=== PATIENT | male | born 1980 | race American Indian/Alaskan Native ===

== ENCOUNTER 2016-06-22 12:46 | Outpatient (CLI) | payer BC ==
--- NOTE | 2016-06-22 15:20 | Ultrasound Report ---
ULTRASOUND RENAL INDICATION: Severe, stage IV chronic kidney disease. COMPARISON: None similar. FINDINGS: Renal sonography suggests moderately increased renal cortical echogenicity. Grossly preserved contours. No hydronephrosis. RIGHT KIDNEY measures 11.9 x 4.9 x 5.4 cm with cortical thickness of 1.2 cm. LEFT KIDNEY visualization difficult due to lack of good acoustic window, though estimated at 11.1 x 5.4 x 5 cm with cortical thickness of 1.4 cm. URINARY BLADDER suboptimally distended and assessed. CONCLUSION: Underlying medical renal disease without acute renal sonographic abnormality, as described. Thank you for the opportunity to participate in this patient's care.
== END 2016-06-22 12:47 | disposition home or self-care (01) ==
LOC: US 12:46
PROVIDERS: ATTEND Internal Medicine Nephrology
DX: N18.4 Chronic kidney disease, stage 4 (severe) (principal); N32.89 Other specified disorders of bladder
CPT/HCPCS: 76770

== ENCOUNTER 2019-01-21 18:14 | Inpatient (IN) | payer BC, OTHER ==
--- NOTE | 2019-01-21 18:27 | Event Note ---
ED Screening Note Date of service: 01/21/19 Time: 18:23 ED Screening Note: 38 y/o male comes in for SOB, N/V/ diarrhea times. 2 weeks. History of CHF, HTN, pre diabetes, kidney failure. Is on no meds. This initial assessment/diagnostic orders/clinical plan/treatment(s) is/are subject to change based on patients health status, clinical progression and re- assessment by fellow clinical providers in the ED. Further treatment and workup at subsequent clinical providers discretion. Patient/guardian urged not to elope from the ED as their condition may be serious if not clinically assessed and managed. Initial orders include:
--- NOTE | 2019-01-21 19:16 | Emergency Department Report ---
HPI - General Chief Complaint: Dyspnea/Respdistress Time Seen by Provider: 01/21/19 18:23 - HPI HPI: 38-year-old male presents to the emergency department with a 1.5 week history of some nausea, vomiting, abdominal pain and shortness of b reath. He has a past medical history of hypertension, CHF, chronic kidney disease and admits to medication noncompliance. He does not have a primary care physician or light rail train operator but says that his baby attendant is Dr. oMoney. 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 He has not taken anything for his symptoms prior to presentation. He is a tobacco smoker but denies any illicit drug use. No fever, chest pain, back pain. ED Past Medical Hx - Past Medical History Previous Medical History?: Yes Hx Hypertension: Yes Hx Congestive Heart Failure: Yes Hx Renal Disease: Yes Additional medical history: hernia - Surgical History Past Surgical History?: No - Social History Smoking Status: Current Every Day Smoker Substance Use Type: None - Medications Home Medications: Home Medications Medication Instructions Recorded Confirmed Last Taken Type Clotrimazole/Betamethasone 1 applicatio TP BID #30 gm 09/30/13 07/01/15 Unknown Rx [Lotrisone] amLODIPine [Norvasc] 5 mg PO DAILY #30 tab 06/30/15 Unknown Rx ED Review of Systems ROS: Stated complaint: KIDNEY PAIN/SOB/OFF MEDS Other details as noted in HPI Comment: All other systems reviewed and negative Constitutional: denies: chills, fever Eyes: denies: eye pain, vision change ENT: denies: ear pain, throat pain Respiratory: shortness of breath. denies: cough Cardiovascular: edema. denies: chest pain Gastrointestinal: abdominal pain, nausea, vomiting Genitourinary: denies: dysuria, discharge Musculoskeletal: denies: back pain, arthralgia Skin: denies: rash, lesions Neurological: denies: headache, weakness Physical Exam - Physical Exam Vital Signs: Vital Signs 01/21/19 18:20 Temperature 98.9 F Pulse Rate 97 H Respiratory 19 Rate Blood Pressure 189/123 O2 Sat by Pulse 97 Oximetry Physical Exam: GENERAL: The patient is well-developed well-nourished. HENT: Normocephalic. Atraumatic. Patient has moist mucous membranes. EYES: Extraocular motions are intact. Pupils equal reactive to light bilaterally. NECK: Supple. Trachea is midline. CHEST/LUNGS: Clear to auscultation. There is no respiratory distress noted. HEART/CARDIOVASCULAR: Regular. There is no tachycardia. There is no murmur. ABDOMEN: Abdomen is soft, nontender. Patient has normal bowel sounds. Obese habitus. There is a reducible umbilical hernia. SKIN: There is mild pitting edema to the bilateral lower extremity's. NEURO: The patient is awake, alert, and oriented. The patient is cooperative. The patient has no focal neurologic deficits. Normal speech. MUSCULOSKELETAL: There is no tenderness or deformity. There is no evidence of acute injury. ED Course Vital Signs 01/21/19 18:20 Temperature 98.9 F Pulse Rate 97 H Respiratory 19 Rate Blood Pressure 189/123 O2 Sat by Pulse 97 Oximetry - Consultations Consultation #1: 01/22/19 00:[address] Candelario, nephrology, who has agreed to see the patient has a consult. He has asked for a renal ultrasound and a urinalysis. ED Medical Decision Making - Lab Data Result diagrams: 01/21/19 19:14 01/21/19 19:14 - EKG Data -: EKG Interpreted by Me EKG shows normal: sinus rhythm, axis, intervals (prolonged QT and QTC intervals) , QRS complexes, ST-T waves (there is some T-wave flattening and T-wave inversions to the lateral leads) Rate: normal - EKG Data When compared to previous EKG there are: changes noted (new T-wave inversions to the lateral leads from previous EKG) Interpretation: other (sinus rhythm, prolonged QT and QTC intervals, some flattening of the T waves and T-wave inversions to the lateral leads) - Radiology Data Radiology results: report reviewed, image reviewed interpreted by me: Chest x-ray does not show any acute process. There are no pleural effusions, obvious pneumonia and there is no pneumothorax. Abdominal x-ray shows nonspecific nonobstructive bowel gas Bilateral renal ultrasound. 01/21/2019. HISTORY: Acute renal failure. FINDINGS: Right kidney measures 11.2 cm. Cortex measures 2.1 cm. Left kidney measures 11 cm. Cortex measures 1.8 cm. Cortical thickness and echogenicity is normal. Negative for mass or obstruction. The right kidney contains a 1.4 cm cyst. A left renal cyst measures 1.2 cm. The bladder contains moderate urine. IMPRESSION: IMPRESSION: 1. Negative for obstruction or localized inflammation. 2. Small bilateral renal cysts. NM lung scan perf/vent INDICATION / CLINICAL INFORMATION: SOb, elevated dimer. TRACER: Seen on 133 gas 19.9 mCi inhalation. Technetium 99m MAA 4.55 mCi IV injection. COMPARISON: No relevant prior imaging study available. FINDINGS: Nuclear medicine ventilation and perfusion lung imaging were performed. Both are relatively homogeneous. Negative for suspicious ventilation or perfusion defect. IMPRESSION: Low probability for pulmonary embolus. - Medical Decision Making This patient presents with some intermittent shortness of breath, nausea, vomiting, abdominal pain. He has a history of CHF and there is some history of chronic renal insufficiency but it is unknown what his normal creatinine and GFR levels are. Chest x-ray did not show any volume overload, pneumonia, pleural effusions or any other acute process. Abdominal x-ray shows nonspecific nonobstructive bowel gas. EKG does not show any signs of ST elevation NM. The patient's labs show acute renal failure with a GFR of 3. He appears to have signs of uremia with a BUN of 120, creatinine of 20. He has hypocalcemia. A VQ scan was done that was low probability for a pulmonary embolus and. Renal ultrasound shows bilateral renal cysts. Nephrology was contacted and consult. The patient be admitted to hospital for further evaluation and treatment and was accepted for admission by the hospitalist, Dr. Baker. - Differential Diagnosis CHF, renal failure, electrolyte abnormalities, dysrhythmia Critical Care Time: No Critical care attestation.: If time is entered above; I have spent that time in minutes in the direct care of this critically ill patient, excluding procedure time. ED Disposition Clinical Impression: Hypertensive urgency, Hypocalcemia, Uremia Acute renal failure Qualifiers: Acute renal failure type: unspecified Qualified Code(s): N17.9 - Acute kidney failure, unspecified Disposition: 09 OP ADMIT IP TO THIS HOSP Is pt being admited?: Yes Condition: Fair Time of Disposition: 00:12
[2019-01-21 19:36] LABS: Basophils # (Auto) 0.1 K/mm3 (0.0-0.1); Basophils % (Auto) 0.7 % (0.0-1.8); Eosinophils # (Auto) 0.1 K/mm3 (0.0-0.4); Eosinophils % (Auto) 1.4 % (0.0-4.3); Hematocrit 33.6 % (35.5-45.6); Hemoglobin 11.2 gm/dl (11.8-15.2); Lymphocytes # (Auto) 1.3 K/mm3 (1.2-5.4); Lymphocytes % (Auto) 15.2 % (13.4-35.0); Mean Corpuscular HGB Conc 33 % (32-34); Mean Corpuscular Volume 88 fl (84-94); Monocytes # (Auto) 0.5 K/mm3 (0.0-0.8); Monocytes % (Auto) 5.5 % (0.0-7.3); Platelet Count 196 K/mm3 (140-440); Red Blood Count 3.84 M/mm3 (3.65-5.03); Red Cell Distribution Width 15.3 % (13.2-15.2)
[2019-01-21 19:51] LABS: Albumin 3.5 g/dL (3.9-5)
--- NOTE | 2019-01-21 20:08 | XRay Report ---
ABDOMEN 6 VIEW(S) INDICATION / CLINICAL INFORMATION: Abd pain, SOB. COMPARISON: None available. FINDINGS: TUBES / LINES: None. BOWEL GAS PATTERN: No significant abnormality. FREE AIR / EXTRALUMINAL GAS: None seen. ADDITIONAL FINDINGS: No significant additional findings. IMPRESSION: 1. No significant abnormality. Signer Name: Abdoul Acosta MD Signed: 01/21/2019 8:04 PM Workstation Name: [id number]
[2019-01-21 20:28] LABS: Calcium 4.9 mg/dL (8.4-10.2)
[2019-01-21] MEDS ORDERED: SODIUM CHLORIDE 0.9% 1000 ML 1,000 ML IV ONE (20:59)
[2019-01-21] MEDS ORDERED: CALCIUM GLUCONATE 1,000 MG in SODIUM CHLORIDE 0.9% 100 ML IV ONE (22:00)
--- NOTE | 2019-01-21 22:42 | Nuclear Medicine Report ---
NM lung scan perf/vent INDICATION / CLINICAL INFORMATION: SOb, elevated dimer. TRACER: Seen on 133 gas 19.9 mCi inhalation. Technetium 99m MAA 4.55 mCi IV injection. COMPARISON: No relevant prior imaging study available. FINDINGS: Nuclear medicine ventilation and perfusion lung imaging were performed. Both are relatively homogeneo us. Negative for suspicious ventilation or perfusion defect. IMPRESSION: Low probability for pulmonary embolus. Signer Name: Leonid Tesfaye MD Signed: 01/21/2019 10:37 PM Workstation Name: [id number]
--- NOTE | 2019-01-21 23:15 | Ultrasound Report ---
Bilateral renal ultrasound. 01/21/2019. HISTORY: Acute renal failure. FINDINGS: Right kidney measures 11.2 cm. Cortex measures 2.1 cm. Left kidney measures 11 cm. Cortex m easures 1.8 cm. Cortical thickness and echogenicity is normal. Negative for mass or obstruction. The right kidney contains a 1.4 cm cyst. A left renal cyst measures 1.2 cm. The bladder contains moderate urine. IMPRESSION: IMPRESSION: 1. Negative for obstruction or localized inflammation. 2. Small bilateral renal cysts. Signer Name: Leonid Tesfaye MD Signed: 01/21/2019 11:11 PM Workstation Name: [id number]
--- NOTE | 2019-01-21 23:30 | History and Physical Report ---
History of Present Illness Date of examination: 01/21/19 History of present illness: 38 -year-old man history of hypertension, chronic kidney disease comes emergency room complaining of nausea vomiting 1-1/2 weeks, cramping and shortness of breath. Also complaining of decreased oral intake. He has not taken any antih ypertensive in the last 2 months because he got tired of taking it, he was on 6 antihypertensives. complain of abdominal pain review Of Systems: Constitutional: no weight loss, fever, chills Ears, eyes, nose, mouth and throat: no nasal congestion, no nasal discharge, no sinus pressure, blurry vision, diplopia Neck: No neck pain or rigidity. Cardiovascular: No palpitations Respiratory: No cough, shortness of breath Gastrointestinal: No hematochezia Genitourinary : no dysuria, frequency , hematuria Musculoskeletal: no muscle ache , joint pain Integumentary: no rash, no pruritis Neurological: no parathesias, focal weakness Endocrine: no cold or heat intolerance, no polyuria or polydipsia Hematologic/Lymphatic: no easy bruising, no easy bleeding, no gland swelling Allergic/Immunologic: no urticaria, no angioedema. PAST MEDICAL HISTORY:hypertension, chronic kidney disease PAST SURGICAL HISTORY: none FAMILY HISTORY:hypertension, diabetes SOCIAL HISTORY: Denies tobacco, drugs, alcohol Medications and Allergies Allergies Allergy/AdvReac Type Severity Reaction Status Date / Time No Known Allergies Allergy Unverified 09/30/13 13:19 Home Medications Medication Instructions Recorded Confirmed Last Taken Type Furosemide 01/22/19 Unknown History NIFEdipine 01/22/19 Unknown History carvediloL 01/22/19 Unknown History hydrALAZINE 01/22/19 Unknown History Active Meds: Active Medications Sodium Chloride (Nacl 0.9% 1000 Ml) 1,000 mls @ 75 mls/hr IV ONCE ONE Stop: 01/22/19 10:18 Last Admin: 01/21/19 22:50 Dose: 75 mls/hr Documented by: Exam - Physical Exam Narrative exam: General Apperance: The patient sitting in bed no acute distress HEENT: Normocephalic, atraumatic. Pupils equally round and reactive to light, extraocular movement intact, and no sclericterus or JVD or thyromegaly or nodule. Neck supple, no carotid bruit, mucous membranes moist, no exudate or erythema Heart: S1-S2, regular is rhythm Lungs: Clear to auscultation bilaterally, breathing comfortable Abdomen: Positive bowel sounds, soft, +hernia, nontender, nondistended, no organomegaly Extremities: No edema cyanosis clubbing Skin: no rash, nodule, warm and dry Neuro:CN 2 -12 intact, motor/sensory intact, speech is fluent - Constitutional Vitals: Temp Pulse Resp BP Pulse Ox 98.2 F 90 13 187/118 100 01/21/19 19:10 01/21/19 22:57 01/21/19 21:00 01/21/19 22:57 01/21/19 21:00 Results - Labs CBC & Chem 7: 01/21/19 19:14 01/22/19 00:17 Labs: Abnormal lab results 01/21/19 01/21/19 01/21/19 Range/Units 19:14 19:14 19:14 Hgb 11.2 L (11.8-15.2) gm/dl Hct 33.6 L (35.5-45.6) % RDW 15.3 H (13.2-15.2) % Seg Neutrophils % 77.2 H (40.0-70.0) % D-Dimer 1597.67 H (0-234) ng/mlDDU Sodium 134 L (137-145) mmol/L Chloride 94.8 L (98-107) mmol/L Carbon Dioxide 14 L (22-30) mmol/L BUN 120 H (9-20) mg/dL Creatinine 19.3 H (0.8-1.5) mg/dL Calcium 4.9 L* (8.4-10.2) mg/dL Alkaline Phosphatase 183 H (35-129) units/L NT-Pro-B Natriuret Pep 96226 H (0-450) pg/mL Albumin 3.5 L (3.9-5) g/dL Lipase (13-60) units/L 01/21/19 Range/Units 19:14 Hgb (11.8-15.2) gm/dl Hct (35.5-45.6) % RDW (13.2-15.2) % Seg Neutrophils % (40.0-70.0) % D-Dimer (0-234) ng/mlDDU Sodium (137-145) mmol/L Chloride (98-107) mmol/L Carbon Dioxide (22-30) mmol/L BUN (9-20) mg/dL Creatinine (0.8-1.5) mg/dL Calcium (8.4-10.2) mg/dL Alkaline Phosphatase (35-129) units/L NT-Pro-B Natriuret Pep (0-450) pg/mL Albumin (3.9-5) g/dL Lipase 105 H (13-60) units/L - Imaging and Cardiology EKG: image reviewed Chest x-ray: report reviewed Abdominal x-ray: report reviewed Assessment and Plan VQ scan reviewed Assessment Acute on chronic renal failure Hypertension malignant Abdominal pain Hypocalcemia Obesity Plan Admit to medicine Start Cardene drip, blood pressure unresponsive to IV medication Continue IV fluid, renal is consulted to see the patient Consult critical care, check CT abdomen, cardiac enzymes Repeat BMP, check phosphorus, magnesium, give calcium Complaints discussed with patient, verbalize understanding
[2019-01-22] MEDS ORDERED: ONDANSETRON 4 MG/2 ML INJ IV PRN (00:09)
[2019-01-22] MEDS ORDERED: ACETAMINOPHEN 325 MG TAB PO PRN (00:09)
[2019-01-22] MEDS: niCARdipine 50 MG in SODIUM CHLORIDE 0.9% 250ML 230 ML IV SCH ×2 (00:58→10:51)
[2019-01-22 01:20] LABS: Calcium 4.8 mg/dL (8.4-10.2)
[2019-01-22 01:21] LABS: Calcium 4.8 mg/dL (8.4-10.2)
[2019-01-22] MEDS ORDERED: CALCIUM CHLORIDE 2,000 MG in SODIUM CHLORIDE 0.9% 100 ML IV ONE (01:25)
--- NOTE | 2019-01-22 01:32 | Cat Scan Report ---
CT abdomen pelvis wo con INDICATION: abdominal pain. TECHNIQUE: All CT scans at this location are performed using the following dose modulation technique: Automated exposure control. CONTRAST: None. COMPARISON: None available. CT ABDOMEN: Evaluation of the parenchymal organs demonstrates no suspicious parenchymal lesion. Mild chronic appearing inflammation is seen adjacent to the kidneys. Negative for abdominal mass, fluid or inflammation. The bowel is not dilated or thickened. A fat-containing ventral hernia in the midline above the umbil icus is moderate/large. CT PELVIS: Negative for mass, fluid or inflammation. The appendix is normal. IMPRESSION: 1. Negative for obstruction or localized inflammation. 2. Moderate/large fat-containing ventral hernia. Signer Name: Leonid Tesfaye MD Signed: 01/22/2019 1:28 AM Workstation Name: [email or web address]
[2019-01-22] MEDS ORDERED: MAGNESIUM OXIDE 400 MG TAB PO ONE (01:46)
[2019-01-22 01:55] LABS: Creatine Kinase MB 4.7 ng/mL (0.0-4.0)
[2019-01-22] MEDS: CALCIUM ACETATE 667 MG CAP PO SCH ×4 (02:21→17:39)
[2019-01-22 03:47] LABS: Chol/HDL Ratio 4.45 %
[2019-01-22 05:25] LABS: Bilirubin,Urine NEG (Negative); Blood,Urine SM (Negative); Color,Urine Straw (Yellow); Mucus,Urine FEW /HPF; Urobilinogen,Urine < 2.0 mg/dL (<2.0)
[2019-01-22 05:26] LABS: Protein,Urine >500 mg/dL (Negative)
[2019-01-22] MEDS ORDERED: ACETAMINOPHEN 325 MG TAB ONE (05:48)
[2019-01-22 07:33] LABS: Creatine Kinase MB 5.6 ng/mL (0.0-4.0)
[2019-01-22] MEDS ORDERED: hydrALAZINE 25 MG TAB PO SCH (14:00)
--- NOTE | 2019-01-22 14:03 | Progress Note ---
Assessment and Plan Assessment and plan: Patient is a [age] -year-old man history of hypertension, chronic kidney disease comes emergency room complaining of nausea vomiting 1-1/2 weeks, cramping and shortness of breath. Also complaining of decreased oral intake. He has not taken any antihypertensive in the last 2 months because he got tired of taking it, he was on 6 antihypertensives. Creatinine was found to be 19.3. * CT abd/pelvis without contrast Impression: Negative for obstruction or localized, moderate/large fat containing ventral hernia * Renal US IMPRESSION: 1. Negative for obstruction or localized inflammation. 2. Small bilateral renal cysts. * V/Q low probability for PE * pCXR nothing acute Acute on chronic renal failure 4, suspected due to ATN/vasomotor nephropathy: consulted nephrology, possible need HD Hypertension malignant; wean off cardene drip and start oral antihypertensives Anemia, suspected AOCD: monitor cbc Rhabdo: treat with iv lasix, ?HD hyponatremia, hypervolemic; monitor bmp, may need ultrafiltration Abnormal UA, suspected UTI: Empiric abx Hypomagnesemia: replete and recheck Elevated troponin: serial troponin, consult cardiology Abdominal pain with n/v/d, suspect related to AGE vs gastroparesis type 2 DM, noncompliant with meds: check A1c Hypocalcemia: monitor closely, tele monitoring Obesity, bmi 51.3: lifestyle modification Noncompliance: counseling done DVT ppx: sq heparin CCT 34 minutes History Interval history: Patient was seen and examined. Follow-up on current diagnosis uncontrolled bp, CR ~19. No overnight events reported to me. Patient denies any chest pain, shortness breath, nausea/vomiting or severe headaches. Imaging, nursing note, chart, labs and old chart reviewed. Discussed with patient. Hospitalist Physical - Physical exam Narrative exam: Gen: WDWN, NAD, Awake, Alert, Orientated x 3, bmi 51.3 HEENT: NCAT, EOMI, PERRL, OP Clear Neck: supple, no adenopathy, no thyromegaly, no JVD CVS/Heart: RRR, normal S1S2, pulses present bilaterally Chest/Lungs: diminished bs bilateral, Symmetrical chest expansion, good air entry bilaterally GI/Abdomen: soft, NTND, good bowel sounds, no guarding or rebound /Bladder: no suprapubic tenderness, no CVA or paraspinal tenderness Extermity/Skin: ble edema no obvious rash MSK: FROM x 4 Neuro: CN 2-12 grossly intact, no new focal deficits Psych: calm - Constitutional Vitals: Temp Pulse Resp BP Pulse Ox 97.9 F 96 H 18 139/89 95 01/22/19 12:15 01/22/19 12:15 01/22/19 12:15 01/22/19 12:15 01/22/19 12:15 Results - Labs CBC & Chem 7: 01/21/19 19:14 01/22/19 00:17 Labs: Laboratory Last Values WBC 8.9 K/mm3 (4.5-11.0) 01/21/19 19:14 RBC 3.84 M/mm3 (3.65-5.03) 01/21/19 19:14 Hgb 11.2 gm/dl (11.8-15.2) L 01/21/19 19:14 Hct 33.6 % (35.5-45.6) L 01/21/19 19:14 MCV 88 fl (84-94) 01/21/19 19:14 MCH 29 pg (28-32) 01/21/19 19:14 MCHC 33 % (32-34) 01/21/19 19:14 RDW 15.3 % (13.2-15.2) H 01/21/19 19:14 Plt Count 196 K/mm3 (140-440) 01/21/19 19:14 Lymph % (Auto) 15.2 % (13.4-35.0) 01/21/19 19:14 [place] % (Auto) 5.5 % (0.0-7.3) 01/21/19 19:14 Eos % (Auto) 1.4 % (0.0-4.3) 01/21/19 19:14 Baso % (Auto) 0.7 % (0.0-1.8) 01/21/19 19:14 Lymph # 1.3 K/mm3 (1.2-5.4) 01/21/19 19:14 [place] # 0.5 K/mm3 (0.0-0.8) 01/21/19 19:14 Eos # 0.1 K/mm3 (0.0-0.4) 01/21/19 19:14 Baso # 0.1 K/mm3 (0.0-0.1) 01/21/19 19:14 Seg Neutrophils % 77.2 % (40.0-70.0) H 01/21/19 19:14 Seg Neutrophils # 6.9 K/mm3 (1.8-7.7) 01/21/19 19:14 D-Dimer 1597.67 ng/mlDDU (0-234) H 01/21/19 19:14 Sodium 136 mmol/L (137-145) L 01/22/19 00:17 Potassium 3.8 mmol/L (3.6-5.0) 01/22/19 00:17 Chloride 97.2 mmol/L (98-107) L 01/22/19 00:17 Carbon Dioxide 12 mmol/L (22-30) L 01/22/19 00:17 Anion Gap 31 mmol/L 01/22/19 00:17 BUN 121 mg/dL (9-20) H 01/22/19 00:17 Creatinine 19.2 mg/dL (0.8-1.5) H 01/22/19 00:17 Estimated GFR 3 ml/min 01/22/19 00:17 BUN/Creatinine Ratio 6 % 01/22/19 00:17 Glucose 93 mg/dL (75-100) 01/22/19 00:17 POC Glucose 94 (70-105) 01/21/19 18:36 Calcium 4.8 mg/dL (8.4-10.2) L* 01/22/19 00:17 Calcium 4.8 mg/dL (8.4-10.2) L* 01/22/19 00:17 Phosphorus 11.00 mg/dL (2.5-4.5) H 01/22/19 00:17 Magnesium 1.60 mg/dL (1.7-2.3) L 01/22/19 00:17 Total Bilirubin 0.20 mg/dL (0.1-1.2) 01/21/19 19:14 AST 17 units/L (5-40) 01/21/19 19:14 ALT 9 units/L (7-56) 01/21/19 19:14 Alkaline Phosphatase 183 units/L (35-129) H 01/21/19 19:14 Total Creatine Kinase 1658 units/L (55-170) H 01/22/19 06:50 CK-MB (CK-2) 5.6 ng/mL (0.0-4.0) H 01/22/19 06:50 CK-MB (CK-2) Rel Index 0.3 (0-4) 01/22/19 06:50 Troponin T 0.076 ng/mL (0.00-0.029) H 01/22/19 06:50 NT-Pro-B Natriuret Pep 77058 pg/mL (0-450) H 01/21/19 19:14 Total Protein 8.2 g/dL (6.3-8.2) 01/21/19 19:14 Albumin 3.5 g/dL (3.9-5) L 01/21/19 19:14 Albumin/Globulin Ratio 0.7 % 01/21/19 19:14 Triglycerides 99 mg/dL (2-149) 01/22/19 01:09 Cholesterol 147 mg/dL (50-199) 01/22/19 01:09 LDL Cholesterol Direct 106 mg/dL (50-130) 01/22/19 01:09 HDL Cholesterol 33 mg/dL (40-59) L 01/22/19 01:09 Cholesterol/HDL Ratio 4.45 % 01/22/19 01:09 Lipase 105 units/L (13-60) H 01/21/19 19:14 Urine Color Straw (Yellow) 01/22/19 05:03 Urine Turbidity Clear (Clear) 01/22/19 05:03 Urine pH 6.0 (5.0-7.0) 01/22/19 05:03 Ur Specific [place] 1.008 (1.003-1.030) 01/22/19 05:03 Urine Protein >500 mg/dL (Negative) 01/22/19 05:03 Urine Glucose (UA) 50 mg/dL (Negative) 01/22/19 05:03 Urine Ketones Neg mg/dL (Negative) 01/22/19 05:03 Urine Blood Sm (Negative) 01/22/19 05:03 Urine Nitrite Neg (Negative) 01/22/19 05:03 Urine Bilirubin Neg (Negative) 01/22/19 05:03 Urine Urobilinogen < 2.0 mg/dL (<2.0) 01/22/19 05:03 Ur Leukocyte Esterase Tr (Negative) 01/22/19 05:03 Urine WBC (Auto) 18.0 /HPF (0.0-6.0) H 01/22/19 05:03 Urine RBC (Auto) 3.0 /HPF (0.0-6.0) 01/22/19 05:03 U Epithel Cells (Auto) 1.0 /HPF (0-13.0) 01/22/19 05:03 Urine Mucus Few /HPF 01/22/19 05:03 Active Medications - Current Medications Current Medications: Generic Name Dose Route Start Last Admin Trade Name Freq PRN Reason Stop Dose Admin Acetaminophen 650 mg 01/22/19 00:09 01/22/19 05:49 Tylenol PO 650 mg Q4H PRN Administration Pain MILD(1-3)/Fever >100.5/SIERRA Calcium Acetate 667 mg 01/22/19 01:25 01/22/19 13:06 Phoslo PO 667 mg TIDWM GUNNER Administration Carvedilol 6.25 mg 01/22/19 14:00 Coreg PO BID GUNNER Furosemide 40 mg 01/22/19 14:00 Lasix PO QDAY GUNNER Heparin Sodium (Porcine) 5,000 unit 01/23/19 22:00 Heparin SUB-Q Q12HR GUNNER Hydralazine HCl 25 mg 01/22/19 14:00 Apresoline PO Q8HR GUNNER Hydralazine HCl 10 mg 01/22/19 13:56 Apresoline IV Q4HR PRN Blood Pressure Magnesium Sulfate 2 gm in 50 mls @ 25 mls/hr 01/22/19 13:55 Magnesium Sulfate 2gm/50ml IV 01/22/19 15:54 ONCE ONE Nifedipine 60 mg 01/22/19 14:00 Procardia Xl PO QDAY GUNNER Ondansetron HCl 4 mg 01/22/19 00:09 Zofran IV Q8H PRN Nausea And Vomiting Polyethylene Glycol 17 gm 01/22/19 13:56 Miralax 3350 PO QDAY PRN Constipation Sodium Chloride 10 ml 01/22/19 10:00 01/22/19 10:50 Sodium Chloride Flush Syringe 10 Ml IV 10 ml BID GUNNER Administration Sodium Chloride 10 ml 01/22/19 00:09 Sodium Chloride Flush Syringe 10 Ml IV PRN PRN LINE FLUSH
[2019-01-22] MEDS ORDERED: carvediloL 6.25 MG TAB ONE ×2 (14:08→17:35)
[2019-01-22] MEDS ORDERED: MAGNESIUM SULFATE 2 GM/50 ML BAG IV ONE ×2 (14:30→15:40)
[2019-01-22] MEDS ORDERED: POLYETHYLENE GLYCOL 3350 17 GM POWDER PO PRN (14:30)
[2019-01-22] MEDS ORDERED: hydrALAZINE 20 MG/1 ML INJ IV PRN (14:30)
[2019-01-22] MEDS ORDERED: carvediloL 6.25 MG TAB PO SCH ×2 (14:30→16:11)
[2019-01-22] MEDS ORDERED: FUROSEMIDE 20 MG TAB ONE (14:50)
[2019-01-22] MEDS: FUROSEMIDE 40 MG TAB PO SCH (14:51)
[2019-01-22] MEDS: NIFEdipine XL 60 MG TAB PO SCH (14:51)
[2019-01-22] MEDS ORDERED: cefTRIAXone/NS 1 GM/50 ML 1 GM/50 ML BAG IV ONE (15:40)
--- NOTE | 2019-01-22 15:55 | Consultation ---
History of Present Illness Consult date: 01/22/19 Requesting physician: OBED CURTIS Consult reason: elevated troponin History of present illness: The pt is a 38-year-old male with a past medical history of CKD (followed by Dr. Mooney), "congestive heart failure", uncontrolled HTN, suspected GABRIELLA, obesity, medical noncompliance, tobacco smoker. He presented to the emergency department with a 1.5 week history of some nausea, vomiting, abdominal pain, diarrhea and shortness of breath. He has not taken any prescription medications in over 2 months because he the anti-hypertensive medications made him feel weak. He is supposed to be taking 6 antihypertensives. He does not have a primary care physician or lead sql developer. He denies any chest pain, palpitations, diaphoresis, dizziness or syncope. BUN/Cr on admission noted to be 120/19.3. Serum K+ WNL. Cardiology has been consulted for minimally elevated troponins. Past History Past Medical History: hypertension, other (ckd) Social history: lives with family, smoking. denies: alcohol abuse, prescription drug abuse Medications and Allergies Allergies Allergy/AdvReac Type Severity Reaction Status Date / Time No Known Allergies Allergy Unverified 09/30/13 13:19 Home Medications Medication Instructions Recorded Confirmed Last Taken Type Furosemide 01/22/19 Unknown History NIFEdipine 01/22/19 Unknown History carvediloL 01/22/19 Unknown History hydrALAZINE 01/22/19 Unknown History Active Meds: Active Medications Acetaminophen (Tylenol) 650 mg PO Q4H PRN PRN Reason: Pain MILD(1-3)/Fever >100.5/SIERRA Last Admin: 01/22/19 05:49 Dose: 650 mg Documented by: Calcium Acetate (Phoslo) 667 mg PO TIDWM [facility] Last Admin: 01/22/19 13:06 Dose: 667 mg Documented by: Carvedilol (Coreg) 6.25 mg PO BID [facility] Last Admin: 01/22/19 14:13 Dose: 6.25 mg Documented by: Furosemide (Lasix) 40 mg PO QDAY [facility] Last Admin: 01/22/19 14:51 Dose: 40 mg Documented by: Heparin Sodium (Porcine) (Heparin) 5,000 unit SUB-Q Q12HR [facility] Hydralazine HCl (Apresoline) 25 mg PO Q8HR [facility] Last Admin: 01/22/19 14:13 Dose: 25 mg Documented by: Hydralazine HCl (Apresoline) 10 mg IV Q4H PRN PRN Reason: Blood Pressure Magnesium Sulfate (Magnesium Sulfate 2gm/50ml) 2 gm in 50 mls @ 25 mls/hr IV ONCE ONE Stop: 01/22/19 16:29 Last Admin: 01/22/19 15:47 Dose: 25 mls/hr Documented by: Ceftriaxone Sodium (Rocephin/Ns 1 Gm/50 Ml) 1 gm in 50 mls @ 100 mls/hr IV Q24HR [facility]; Protocol Nifedipine (Procardia Xl) 60 mg PO QDAY [facility] Last Admin: 01/22/19 14:51 Dose: 60 mg Documented by: Ondansetron HCl (Zofran) 4 mg IV Q8H PRN PRN Reason: Nausea And Vomiting Polyethylene Glycol (Miralax 3350) 17 gm PO QDAY PRN PRN Reason: Constipation Sodium Chloride (Sodium Chloride Flush Syringe 10 Ml) 10 ml IV BID [facility] Last Admin: 01/22/19 10:50 Dose: 10 ml Documented by: Sodium Chloride (Sodium Chloride Flush Syringe 10 Ml) 10 ml IV PRN PRN PRN Reason: LINE FLUSH Review of Systems Constitutional: no weight loss, no weight gain, no fever, no chills, no sweats Ears, nose, mouth and throat: no ear pain, no nose pain, no sinus pressure, no sinus pain Cardiovascular: chest pain (when vomiting), shortness of breath, dyspnea on exertion, high blood pressure, decreased exercise tolerance, no orthopnea, no palpitations, no edema, no syncope, no lightheadedness, no leg edema Respiratory: shortness of breath, dyspnea on exertion, no cough, no congestion, no wheezing, no pain on inspiration Gastrointestinal: abdominal pain, nausea, vomiting, no diarrhea, no cons tipation, no change in bowel habits, no hematemesis, no coffee ground emesis Genitourinary Male: no dysuria, no hematuria, no flank pain, no discharge, no urinary frequency, no urinary hesitancy Musculoskeletal: no neck stiffness, no neck pain, no shooting arm pain, no arm numbness/tingling, no low back pain, no shooting leg pain Integumentary: no rash, no pruritis, no redness, no sores, no wounds Neurological: no head injury, no paralysis, no weakness, no parathesias, no numbness, no tingling, no seizures, no syncope Psychiatric: no anxiety Endocrine: no cold intolerance, no heat intolerance Hematologic/Lymphatic: no easy bruising, no easy bleeding Allergic/Immunologic: no urticaria, no wheezing Physical Examination Vital Signs Temp Pulse Resp BP Pulse Ox 98.9 F 97 H 19 189/123 97 01/21/19 18:20 01/21/19 18:20 01/21/19 18:20 01/21/19 18:20 01/21/19 18:20 General appearance: no acute distress HEENT: Positive: PERRL, Normocephaly, Mucus Membranes Moist Neck: Positive: neck supple, trachea midline Cardiac: Positive: Reg Rate and Rhythm, S1/S2 Lungs: Positive: Decreased Breath Sounds Neuro: Positive: Grossly Intact Abdomen: Negative: Tender Skin: Negative: Rash Musculoskeletal: No Pain Extremities: Present: edema (trace BLE) Results 01/21/19 19:14 01/22/19 00:17 Cardiac Enzymes 01/21/19 01/22/19 01/22/19 Range/Units 19:14 01:09 06:50 AST 17 (5-40) units/L CK-MB (CK-2) 4.7 H 5.6 H (0.0-4.0) ng/mL Lipids 01/22/19 Range/Units 01:09 Triglycerides 99 (2-149) mg/dL Cholesterol 147 (50-199) mg/dL HDL Cholesterol 33 L (40-59) mg/dL Cholesterol/HDL Ratio 4.45 % CBC 01/21/19 Range/Units 19:14 WBC 8.9 (4.5-11.0) K/mm3 RBC 3.84 (3.65-5.03) M/mm3 Hgb 11.2 L (11.8-15.2) gm/dl Hct 33.6 L (35.5-45.6) % Plt Count 196 (140-440) K/mm3 Lymph # 1.3 (1.2-5.4) K/mm3 [place] # 0.5 (0.0-0.8) K/mm3 Eos # 0.1 (0.0-0.4) K/mm3 Baso # 0.1 (0.0-0.1) K/mm3 Comprehensive Metabolic Panel 01/21/19 01/22/19 01/22/19 Range/Units 19:14 00:17 00:17 Sodium 134 L 136 L (137-145) mmol/L Potassium 4.0 3.8 (3.6-5.0) mmol/L Chloride 94.8 L 97.2 L (98-107) mmol/L Carbon Dioxide 14 L 12 L (22-30) mmol/L BUN 120 H 121 H (9-20) mg/dL Creatinine 19.3 H 19.2 H (0.8-1.5) mg/dL Glucose 93 93 (75-100) mg/dL Calcium 4.9 L* 4.8 L* 4.8 L* (8.4-10.2) mg/dL AST 17 (5-40) units/L ALT 9 (7-56) units/L Alkaline Phosphatase 183 H (35-129) units/L Total Protein 8.2 (6.3-8.2) g/dL Albumin 3.5 L (3.9-5) g/dL - Imaging and Cardiology Echo: pending EKG: report reviewed, image reviewed EKG interpretations - Telemetry EKG Rhythm: Sinus Rhythm - EKG Sinus rhythms and dysrhythmias: sinus rhythm Repolarization changes or abnormalities: ST or T wave suggestive of ischemia ( lateral t-wave inversions) Assessment and Plan Pt's minimally elevated troponins appear nonspecific at this time in setting of acute on chronic renal failure and uncontrolled HTN. Pt denies chest pain. Will continue to trend Sandra and f/u ECG in AM. Obtain echo. Optimize anti-hypertensive regimen. Await nephrology recs. Further recs to follow per hospital course. The patient has been seen in conjunction with Dr. Silver who agrees with the assessment and plan of care. - Patient Problems (1) Acute on chronic renal failure Current Visit: Yes Status: Acute (2) Nausea and vomiting Current Visit: Yes Status: Acute (3) Abdominal pain Current Visit: Yes Status: Acute (4) Uncontrolled hypertension Current Visit: Yes Status: Acute (5) Elevated troponin Current Visit: Yes Status: Acute (6) Suspected sleep apnea Current Visit: Yes Status: Chronic (7) Obesity Current Visit: Yes Status: Chronic (8) Medical non-compliance Current Visit: Yes Status: Chronic
[2019-01-22] MEDS: cefTRIAXone/NS 1 GM/50 ML 1 GM/50 ML BAG IV SCH (16:14)
--- NOTE | 2019-01-22 17:15 | Consultation ---
History of Present Illness - Reason for Consult Consult date: 01/22/19 chronic renal failure Requesting physician: ALEXANDRA NAVARRETE - History of Present Illness Date 8-year-old male with a history of hypertension, chronic heart failure and chronic kidney disease was not poorly compliant with medical therapy. He presents on account of abdominal pain, nausea and vomiting of one week's duration. Patient also complaining of shortness of breath. He stopped his antihypertensive medications for the last 2 months -he was on 6 medications. 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 denies: alcohol abuse, prescription drug abuse, IV drug use Family history: CAD, hypertension (father), stroke (father at age 60), other (Mother has hypotension) Medications and Allergies Allergies Allergy/AdvReac Type Severity Reaction Status Date / Time No Known Allergies Allergy Unverified 09/30/13 13:19 Home Medications Medication Instructions Recorded Confirmed Last Taken Type Furosemide 01/22/19 Unknown History NIFEdipine 01/22/19 Unknown History carvediloL 01/22/19 Unknown History hydrALAZINE 01/22/19 Unknown History Active Meds: Active Medications Acetaminophen (Tylenol) 650 mg PO Q4H PRN PRN Reason: Pain MILD(1-3)/Fever >100.5/SIERRA Last Admin: 01/22/19 05:49 Dose: 650 mg Documented by: Aspirin (Aspirin) 325 mg PO QDAY [facility] Calcium Acetate (Phoslo) 667 mg PO TIDWM [facility] Last Admin: 01/22/19 13:06 Dose: 667 mg Documented by: Carvedilol (Coreg) 12.5 mg PO BID [facility] Furosemide (Lasix) 40 mg PO QDAY [facility] Last Admin: 01/22/19 14:51 Dose: 40 mg Documented by: Heparin Sodium (Porcine) (Heparin) 5,000 unit SUB-Q Q12HR [facility] Hydralazine HCl (Apresoline) 10 mg IV Q4H PRN PRN Reason: Blood Pressure Hydralazine HCl (Apresoline) 50 mg PO Q8HR [facility] Ceftriaxone Sodium (Rocephin/Ns 1 Gm/50 Ml) 1 gm in 50 mls @ 100 mls/hr IV Q24HR [facility]; Protocol Last Admin: 01/22/19 16:14 Dose: 100 mls/hr Documented by: Nifedipine (Procardia Xl) 60 mg PO QDAY [facility] Last Admin: 01/22/19 14:51 Dose: 60 mg Documented by: Ondansetron HCl (Zofran) 4 mg IV Q8H PRN PRN Reason: Nausea And Vomiting Polyethylene Glycol (Miralax 3350) 17 gm PO QDAY PRN PRN Reason: Constipation Sodium Chloride (Sodium Chloride Flush Syringe 10 Ml) 10 ml IV BID [facility] Last Admin: 01/22/19 10:50 Dose: 10 ml Documented by: Sodium Chloride (Sodium Chloride Flush Syringe 10 Ml) 10 ml IV PRN PRN PRN Reason: LINE FLUSH Review of Systems All systems: negative (Constitutional: no fever or chills. No anorexia or weight loss. HEENT: No sore throat or sinus drainage no hearing or vision impairment . Cardiovascular: No chest pain, shortness of breath, palpitations, admits to lower extremity swelling no dizziness. Respiratory: No cough, sputum, shortness of breath, hemoptysis or wheezing. Gastrointestinal: No nausea, vomiting, diarrhea, abdominal pain, hematemesis or melena. Genitourinary: Urine is foamy. No frequency urgency dysuria or hematuria. hematologic: No abnormal bleeding or bruising. Integumentary: Mixed to itching in his legs. Skin is dry. No Rash. Neurological: No headache no focal weakness or numbness, no syncope or seizures. Musculoskeletal: Admits to joint pain and stiffness in hands and feet. Psychiatry: no anxiety or depression) Exam - Vital Signs Vital signs: Vital Signs Temp Pulse Resp BP Pulse Ox 98.9 F 97 H 19 189/123 97 01/21/19 18:20 01/21/19 18:20 01/21/19 18:20 01/21/19 18:20 01/21/19 18:20 - Physical Exam Narrative exam: Heavily built middle-aged -[place] male lying in bed in no acute distress HEENT: NCAT, pink oral mucous membrane Neck: Supple, no venous distention CVS: S1S2 RRR with no murmur, rub or gallop Chest: Clear to auscultation Abdomen: Obese,, soft, nontender, no organomegaly, bowel sounds are present Extremities: No edema Skin hyperpigmentation in the legs and feet Genitourinary deferred Neuro: Awake, alert no focal deficits Results - Lab Results 01/23/19 04:56 01/23/19 04:56 Most recent lab results Calcium 4.8 mg/dL (8.4-10.2) L* 01/22/19 00:17 Calcium 4.8 mg/dL (8.4-10.2) L* 01/22/19 00:17 Phosphorus 11.00 mg/dL (2.5-4.5) H 01/22/19 00:17 Magnesium 1.60 mg/dL (1.7-2.3) L 01/22/19 00:17 Assessment and Plan - Patient Problems (1) Chronic kidney disease, stage 5 Current Visit: Yes Status: Acute Plan to address problem: Patient has chronic kidney disease which appears to have progressed to stage V chronic kidney disease. Presents with uremic symptoms and metabolic acidosis. Need to initiate dialysis. Discussed benefits and risks with the patient and agrees to proceed with starting dialysis. Will consult vascular surgeon to place permacath. Also get the mapping for AV fistula in the future. Start hemodialysis tomorrow. Arrange for outpatient dialysis (2) Hypertensive chronic kidney disease with stage 5 chronic kidney disease or end stage renal disease Current Visit: Yes Status: Acute Plan to address problem: Resume oral acceptance medications, wean off Cardene and follow-up blood pressure (3) Metabolic acidosis Current Visit: Yes Status: Acute Plan to address problem: *By mouth sodium bicarbonate and hopefully bicarbonate improves tremendously sta rting dialysis (4) Hypertensive urgency Current Visit: Yes Status: Acute Plan to address problem: Follow-up blood pressure (5) Nausea and vomiting Current Visit: Yes Status: Acute Plan to address problem: Probably secondary to uremia. By mouth antiemetic and hopefully symptoms improved after initiating dialysis (6) Medical non-compliance Current Visit: Yes Status: Chronic Plan to address problem: Acid patient about importance of adherence to medical treatments including medications, Diet, office visits and now dialysis
[2019-01-22] MEDS: carvediloL 12.5 MG TAB PO SCH ×2 (17:39→21:33)
[2019-01-22] MEDS ORDERED: SODIUM CHLORIDE 0.9% 100 ML IV PRN (19:55)
[2019-01-22] MEDS: hydrALAZINE 25 MG TAB PO SCH (21:32)
[2019-01-23] MEDS: hydrALAZINE 25 MG TAB PO SCH ×3 (05:44→21:41)
[2019-01-23 06:08] LABS: Basophils % (Auto) 0.5 % (0.0-1.8); Eosinophils # (Auto) 0.2 K/mm3 (0.0-0.4); Eosinophils % (Auto) 2.2 % (0.0-4.3); Hematocrit 31.7 % (35.5-45.6); Hemoglobin 10.6 gm/dl (11.8-15.2); Lymphocytes # (Auto) 1.3 K/mm3 (1.2-5.4); Lymphocytes % (Auto) 15.5 % (13.4-35.0); Mean Corpuscular HGB Conc 33 % (32-34); Mean Corpuscular Volume 87 fl (84-94); Monocytes # (Auto) 0.4 K/mm3 (0.0-0.8); Monocytes % (Auto) 5.2 % (0.0-7.3); Platelet Count 188 K/mm3 (140-440); Red Blood Count 3.66 M/mm3 (3.65-5.03); Red Cell Distribution Width 15.1 % (13.2-15.2)
[2019-01-23 06:36] LABS: Calcium 4.9 mg/dL (8.4-10.2)
[2019-01-23] MEDS: CALCIUM ACETATE 667 MG CAP PO SCH ×3 (08:21→17:57)
[2019-01-23] MEDS ORDERED: HEPARIN/NS 5000 UNIT/500ML 500 ML IR ONE (09:34)
[2019-01-23] MEDS ORDERED: MIDAZOLAM 2 MG/2 ML INJ ONE (09:35)
[2019-01-23] MEDS ORDERED: SODIUM CHLORIDE 0.9% 250ML 250 ML ONE (09:49)
[2019-01-23] MEDS: fentaNYL 100 MCG/2 ML INJ ONE ×2 (09:59→10:10)
[2019-01-23] MEDS: LIDOCAINE (2%) 20 MG/1 ML VIAL 20 ML MDV INFILTRATI ONE ×2 (10:00→10:04)
[2019-01-23] MEDS: HEPARIN 10,000 UNITS/10 ML VIAL ONE ×2 (10:00→10:16)
--- NOTE | 2019-01-23 10:39 | Post Operative Note ---
Pre-op diagnosis: ESRD Post-op diagnosis: same Procedure: Right IJ Permcath Insertion Monitored Conscious Sedation Anesthesia: MAC, local Surgeon: JESE WALLACE Estimated blood loss: minimal Pathology: none Condition: stable Disposition: floor
--- NOTE | 2019-01-23 10:57 | Progress Note ---
Assessment and Plan Pt's minimally elevated troponins appear nonspecific at this time in setting of acute on chronic renal failure and uncontrolled HTN. Pt denies chest pain. Await echo. Optimize anti-hypertensive regimen - increase coreg and hydralazine. He is to be initiated on HD today. The patient has been seen in conjunction with Dr. Silver who agrees with the assessment and plan of care. - Patient Problems (1) Acute on chronic renal failure Current Visit: Yes Status: Acute (2) Nausea and vomiting Current Visit: Yes Status: Acute (3) Abdominal pain Current Visit: Yes Status: Acute (4) Uncontrolled hypertension Current Visit: Yes Status: Acute (5) Elevated troponin Current Visit: Yes Status: Acute (6) Suspected sleep apnea Current Visit: Yes Status: Chronic (7) Obesity Current Visit: Yes Status: Chronic (8) Medical non-compliance Current Visit: Yes Status: Chronic Subjective Date of service: 01/23/19 Principal diagnosis: A/CKD; elevated trop Interval history: pt seen s/p HD access placement, no current complaints. HD to be initiated today. Objective Last Vital Signs Temp 97.6 F 01/23/19 03:04 Pulse 88 01/23/19 05:44 Resp 22 01/23/19 03:04 BP 175/117 01/23/19 05:44 Pulse Ox 95 01/23/19 03:04 - Physical Examination General: No Apparent Distress HEENT: Positive: PERRL, Normocephaly, Mucus Membranes Moist Neck: Positive: neck supple, trachea midline Cardiac: Positive: Reg Rate and Rhythm, S1/S2 Lungs: Positive: Decreased Breath Sounds Neuro: Positive: Grossly Intact Abdomen: Negative: Tender Skin: Negative: Rash Musculoskeletal: No Pain Extremities: Present: edema (trace BLE) - Labs and Meds CBC 01/23/19 Range/Units 04:56 WBC 8.4 (4.5-11.0) K/mm3 RBC 3.66 (3.65-5.03) M/mm3 Hgb 10.6 L (11.8-15.2) gm/dl Hct 31.7 L (35.5-45.6) % Plt Count 188 (140-440) K/mm3 Lymph # 1.3 (1.2-5.4) K/mm3 [place] # 0.4 (0.0-0.8) K/mm3 Eos # 0.2 (0.0-0.4) K/mm3 Baso # 0.0 (0.0-0.1) K/mm3 Comprehensive Metabolic Panel 01/23/19 Range/Units 04:56 Sodium 135 L (137-145) mmol/L Potassium 3.9 (3.6-5.0) mmol/L Chloride 98.5 (98-107) mmol/L Carbon Dioxide 11 L (22-30) mmol/L BUN 117 H (9-20) mg/dL Creatinine 18.8 H (0.8-1.5) mg/dL Glucose 88 (75-100) mg/dL Calcium 4.9 L* (8.4-10.2) mg/dL - Imaging and Cardiology EKG: report reviewed, image reviewed Echo: pending - EKG Sinus rhythms and dysrhythmias: sinus rhythm Repolarization changes or abnormalities: ST or T wave suggestive of ischemia (lateral t-wave inversions)
--- NOTE | 2019-01-23 11:03 | Operative Report ---
STAFF SURGEON: Dr. Isaias Estrella. PREOPERATIVE DIAGNOSIS: End-stage renal disease. POSTOPERATIVE DIAGNOSIS: End-stage renal disease. PROCEDURES PERFORMED: 1. Right IJ PermCath insertion. 2. Monitored conscious sedation for 15 minutes. COMPLICATIONS: None. ESTIMATED BLOOD LOSS: Less than 10 mL. ANESTHESIA: Local MAC. INDICATIONS FOR PROCEDURE: This is a 38-year-old gentleman with chronic kidney disease that has progressed to end-stage renal failure, needing dialysis access and therefore vascular consultation was obtained for evaluation and possible intervention. The patient was explained the risks, benefits and alternatives of procedure, expressed understanding and wished to proceed. DESCRIPTION OF PROCEDURE: After appropriate consent was obtained, the patient was brought back to the shift lab technician, placed on table in supine position and the right neck and chest were prepped and draped in a sterile fashion with ChloraPrep. Appropriate timeout was performed, indicating correct patient, procedure, side of the procedure. I then began the intervention by obtaining percutaneous access of the right internal jugular vein using micropuncture technique under ultrasound guidance. Once we obtained access, needle was exchanged for a micropuncture sheath using Seldinger technique. We then proceeded to place a stiff J wire into the inferior vena cava. The micropuncture sheath was removed. A stab incision was made on the anterior chest wall. We then proceeded to create a subcutaneous tunnel, bringing through a 23 cm straight PermCath. The access site was then thoroughly dilated appropriately and then a sheath and dilator were placed over the wire into the SVC. The dilator and wire were removed. Catheter was placed through the peel-away sheath with the tip of the catheter at the SVC right atrial junction. A pillow sheath was removed. Both lumens were bled appropriately, were flushed with heparinized saline. Appropriate amount of heparin was placed in each port. We then proceeded to close the access site with a deep subcutaneous layer with 3-0 Vicryl and the skin was approximated with 3-0 nylon. The catheter exit site was sutured in place with 3-0 nylon. Appropriate dressing was placed. The patient tolerated the procedure well, emerged from the conscious sedation and was sent to recovery in stable condition. JOB# [id number] VCN/NTS
[2019-01-23] MEDS ORDERED: SODIUM CHLORIDE 0.9% 100 ML IV PRN (11:07)
[2019-01-23] MEDS ORDERED: SODIUM CHLORIDE*PRIMING MACHINE ONLY FOR DIALYSIS MC ONE (11:35)
[2019-01-23] MEDS: cloNIDine 0.2 MG TAB PO SCH ×2 (12:28→21:42)
[2019-01-23] MEDS: FUROSEMIDE 40 MG TAB PO SCH (14:51)
[2019-01-23] MEDS: ASPIRIN 325 MG TAB PO SCH (14:51)
[2019-01-23] MEDS: carvediloL 12.5 MG TAB PO SCH ×2 (14:51→21:42)
[2019-01-23] MEDS: NIFEdipine XL 60 MG TAB PO SCH (14:53)
[2019-01-23] MEDS: cefTRIAXone/NS 1 GM/50 ML 1 GM/50 ML BAG IV SCH (14:53)
--- NOTE | 2019-01-23 16:53 | Progress Note ---
Assessment and Plan Assessment and plan: Patient is a [age] -year-old man history of hypertension, chronic kidney disease comes emergency room complaining of nausea vomiting 1-1/2 weeks, cramping and shortness of breath. Also complaining of decreased oral intake. He has not taken any antihypertensive in the last 2 months because he got tired of taking it, he was on 6 antihypertensives. Creatinine was found to be 19.3. * CT abd/pelvis without contrast Impression: Negative for obstruction or localized, moderate/large fat containing ventral hernia * Renal US IMPRESSION: 1. Negative for obstruction or localized inflammation. 2. Small bilateral renal cysts. * V/Q low probability for PE * pCXR nothing acute Acute on chronic renal failure 4, due to ATN/vasomotor nephropathy: consulted nephrology, possible need HD suspected new ESRD: tunnel HD cath place right chest wall and first HD session today 01/23/19 Hypertension malignant; wean off cardene drip and start oral antihypertensives Anemia, suspected AOCD: monitor cbc Rhabdo: treat with iv lasix, ?HD hyponatremia, hypervolemic; monitor bmp, may need ultrafiltration Abnormal UA, suspected UTI: Empiric abx Hypomagnesemia: replete and recheck Elevated troponin: serial troponin, consult cardiology Abdominal pain with n/v/d, suspect related to AGE vs gastroparesis type 2 DM, noncompliant with meds: check A1c Hypocalcemia: monitor closely, tele monitoring Obesity, bmi 51.3: lifestyle modification Noncompliance: counseling done DVT ppx: sq heparin History Interval history: Patient was seen and examined. Follow-up on current diagnosis uncontrolled bp, CR ~19. No overnight events reported to me. Patient denies any chest pain, shortness breath, nausea/vomiting or severe headaches. Imaging, nursing note, chart, labs and old chart reviewed. Discussed with patient. Hospitalist Physical - Physical exam Narrative exam: Gen: WDWN, NAD, Awake, Alert, Orientated x 3, bmi 51.3 HEENT: NCAT, EOMI, PERRL, OP Clear Neck: supple, no adenopathy, no thyromegaly, no JVD CVS/Heart: RRR, normal S1S2, pulses present bilaterally Chest/Lungs: diminished bs bilateral, Symmetrical chest expansion, good air entry bilaterally GI/Abdomen: soft, NTND, good bowel sounds, no guarding or rebound /Bladder: no suprapubic tenderness, no CVA or paraspinal tenderness Extermity/Skin: ble edema no obvious rash MSK: FROM x 4 Neuro: CN 2-12 grossly intact, no new focal deficits Psych: calm - Constitutional Vitals: Temp Pulse Resp BP Pulse Ox 97.6 F 104 H 16 157/113 95 01/23/19 13:59 01/23/19 14:52 01/23/19 13:59 01/23/19 14:52 01/23/19 03:04 General appearance: Present: no acute distress Results - Labs CBC & Chem 7: 01/23/19 04:56 01/23/19 04:56 Labs: Laboratory Last Values WBC 8.4 K/mm3 (4.5-11.0) 01/23/19 04:56 RBC 3.66 M/mm3 (3.65-5.03) 01/23/19 04:56 Hgb 10.6 gm/dl (11.8-15.2) L 01/23/19 04:56 Hct 31.7 % (35.5-45.6) L 01/23/19 04:56 MCV 87 fl (84-94) 01/23/19 04:56 MCH 29 pg (28-32) 01/23/19 04:56 MCHC 33 % (32-34) 01/23/19 04:56 RDW 15.1 % (13.2-15.2) 01/23/19 04:56 Plt Count 188 K/mm3 (140-440) 01/23/19 04:56 Lymph % (Auto) 15.5 % (13.4-35.0) 01/23/19 04:56 [place] % (Auto) 5.2 % (0.0-7.3) 01/23/19 04:56 Eos % (Auto) 2.2 % (0.0-4.3) 01/23/19 04:56 Baso % (Auto) 0.5 % (0.0-1.8) 01/23/19 04:56 Lymph # 1.3 K/mm3 (1.2-5.4) 01/23/19 04:56 [place] # 0.4 K/mm3 (0.0-0.8) 01/23/19 04:56 Eos # 0.2 K/mm3 (0.0-0.4) 01/23/19 04:56 Baso # 0.0 K/mm3 (0.0-0.1) 01/23/19 04:56 Seg Neutrophils % 76.6 % (40.0-70.0) H 01/23/19 04:56 Seg Neutrophils # 6.4 K/mm3 (1.8-7.7) 01/23/19 04:56 D-Dimer 1597.67 ng/mlDDU (0-234) H 01/21/19 19:14 Sodium 135 mmol/L (137-145) L 01/23/19 04:56 Potassium 3.9 mmol/L (3.6-5.0) 01/23/19 04:56 Chloride 98.5 mmol/L (98-107) 01/23/19 04:56 Carbon Dioxide 11 mmol/L (22-30) L 01/23/19 04:56 Anion Gap 29 mmol/L 01/23/19 04:56 BUN 117 mg/dL (9-20) H 01/23/19 04:56 Creatinine 18.8 mg/dL (0.8-1.5) H 01/23/19 04:56 Estimated GFR 3 ml/min 01/23/19 04:56 BUN/Creatinine Ratio 6 % 01/23/19 04:56 Glucose 88 mg/dL (75-100) 01/23/19 04:56 POC Glucose 94 (70-105) 01/21/19 18:36 Hemoglobin A1c 5.7 % (4-6) 01/23/19 04:56 Calcium 4.9 mg/dL (8.4-10.2) L* 01/23/19 04:56 Phosphorus 11.00 mg/dL (2.5-4.5) H 01/22/19 00:17 Magnesium 1.80 mg/dL (1.7-2.3) 01/23/19 04:56 Total Bilirubin 0.20 mg/dL (0.1-1.2) 01/21/19 19:14 AST 17 units/L (5-40) 01/21/19 19:14 ALT 9 units/L (7-56) 01/21/19 19:14 Alkaline Phosphatase 183 units/L (35-129) H 01/21/19 19:14 Total Creatine Kinase 1658 units/L (55-170) H 01/22/19 06:50 CK-MB (CK-2) 5.6 ng/mL (0.0-4.0) H 01/22/19 06:50 CK-MB (CK-2) Rel Index 0.3 (0-4) 01/22/19 06:50 Troponin T 0.074 ng/mL (0.00-0.029) H 01/23/19 00:31 NT-Pro-B Natriuret Pep 93760 pg/mL (0-450) H 01/21/19 19:14 Total Protein 8.2 g/dL (6.3-8.2) 01/21/19 19:14 Albumin 3.5 g/dL (3.9-5) L 01/21/19 19:14 Albumin/Globulin Ratio 0.7 % 01/21/19 19:14 Triglycerides 99 mg/dL (2-149) 01/22/19 01:09 Cholesterol 147 mg/dL (50-199) 01/22/19 01:09 LDL Cholesterol Direct 106 mg/dL (50-130) 01/22/19 01:09 HDL Cholesterol 33 mg/dL (40-59) L 01/22/19 01:09 Cholesterol/HDL Ratio 4.45 % 01/22/19 01:09 Lipase 105 units/L (13-60) H 01/21/19 19:14 Urine Color Straw (Yellow) 01/22/19 05:03 Urine Turbidity Clear (Clear) 01/22/19 05:03 Urine pH 6.0 (5.0-7.0) 01/22/19 05:03 Ur Specific [place] 1.008 (1.003-1.030) 01/22/19 05:03 Urine Protein >500 mg/dL (Negative) 01/22/19 05:03 Urine Glucose (UA) 50 mg/dL (Negative) 01/22/19 05:03 Urine Ketones Neg mg/dL (Negative) 01/22/19 05:03 Urine Blood Sm (Negative) 01/22/19 05:03 Urine Nitrite Neg (Negative) 01/22/19 05:03 Urine Bilirubin Neg (Negative) 01/22/19 05:03 Urine Urobilinogen < 2.0 mg/dL (<2.0) 01/22/19 05:03 Ur Leukocyte Esterase Tr (Negative) 01/22/19 05:03 Urine WBC (Auto) 18.0 /HPF (0.0-6.0) H 01/22/19 05:03 Urine RBC (Auto) 3.0 /HPF (0.0-6.0) 01/22/19 05:03 U Epithel Cells (Auto) 1.0 /HPF (0-13.0) 01/22/19 05:03 Urine Mucus Few /HPF 01/22/19 05:03 Hep Bs Antigen Non-reactive (Negative) 01/23/19 04:56 Hepatitis C Antibody Non-reactive (NonReactive) 01/23/19 04:56 Active Medications - Current Medications Current Medications: Generic Name Dose Route Start Last Admin Trade Name Freq PRN Reason Stop Dose Admin Acetaminophen 650 mg 01/22/19 00:09 01/22/19 05:49 Tylenol PO 650 mg Q4H PRN Administration Pain MILD(1-3)/Fever >100.5/SIERRA Aspirin 325 mg 01/23/19 10:00 01/23/19 14:51 Aspirin PO 325 mg QDAY GUNNER Administration Calcium Acetate 667 mg 01/22/19 01:25 01/23/19 14:51 Phoslo PO 667 mg TIDWM GUNNER Administration Carvedilol 25 mg 01/23/19 10:00 01/23/19 14:51 Coreg PO 25 mg BID GUNNER Administration Clonidine HCl 0.2 mg 01/23/19 10:00 01/23/19 12:28 Catapres PO 0.2 mg Q12HR GUNNER Administration Epoetin Kamran 10,000 unit 01/22/19 19:55 Procrit IV LUDIVINA PRN hemodialysis Furosemide 40 mg 01/22/19 14:30 01/23/19 14:51 Lasix PO 40 mg QDAY GUNNER Administration Heparin Sodium (Porcine) 5,000 unit 01/23/19 22:00 Heparin SUB-Q Q12HR GUNNER Hydralazine HCl 10 mg 01/22/19 14:30 01/23/19 11:33 Apresoline IV 10 mg Q4H PRN Administration Blood Pressure Hydralazine HCl 100 mg 01/23/19 14:00 01/23/19 14:52 Apresoline PO 100 mg Q8HR GUNNER Administration Ceftriaxone Sodium 1 gm in 50 mls @ 100 mls/hr 01/22/19 15:00 01/23/19 14:53 Rocephin/Ns 1 Gm/50 Ml IV 100 mls/hr Q24HR GUNNER Administration Protocol Sodium Chloride 100 mls @ 999 mls/hr 01/22/19 19:55 Nacl 0.9% IV LUDIVINA PRN Hypotension Sodium Chloride 100 mls @ 999 mls/hr 01/23/19 11:07 Nacl 0.9% IV LUDIVINA PRN Hypotension Nifedipine 60 mg 01/22/19 14:30 01/23/19 14:53 Procardia Xl PO 60 mg QDAY GUNNER Administration Ondansetron HCl 4 mg 01/22/19 00:09 Zofran IV Q8H PRN Nausea And Vomiting Polyethylene Glycol 17 gm 01/22/19 14:30 Miralax 3350 PO QDAY PRN Constipation Sodium Chloride 10 ml 01/22/19 10:00 01/23/19 14:53 Sodium Chloride Flush Syringe 10 Ml IV 10 ml BID GUNNER Administration Sodium Chloride 10 ml 01/22/19 00:09 Sodium Chloride Flush Syringe 10 Ml IV PRN PRN LINE FLUSH
--- NOTE | 2019-01-23 21:12 | Progress Note ---
Assessment and Plan - Patient Problems (1) Chronic kidney disease, stage 5 Current Visit: Yes Status: Acute Plan to address problem: Patient has chronic kidney disease which appears to have progressed to stage V chronic kidney disease. Presents with uremic symptoms and metabolic acidosis. Start on hemoialysis. Respiratory treatments today. We will also get vein mapping for AV fistula in the future. . Arrange for outpatient dialysis (2) Hypertensive chronic kidney disease with stage 5 chronic kidney disease or end stage renal disease Current Visit: Yes Status: Acute Plan to address problem: Resume oral acceptance medications, wean off Cardene and follow-up blood pressure (3) Metabolic acidosis Current Visit: Yes Status: Acute Plan to address problem: *By mouth sodium bicarbonate and hopefully bicarbonate improves tremendously starting dialysis (4) Hypertensive urgency Current Visit: Yes Status: Acute Plan to address problem: The blood pressure is improving. Follow-up blood pressure on current medications (5) Nausea and vomiting Current Visit: Yes Status: Acute Plan to address problem: Probably secondary to uremia. By mouth antiemetic . 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 He has no new complaints. Had dialysis earlier. Feels better Objective - Exam Narrative Exam: Heavily built middle-aged -[place] male lying in bed in no acute distress HEENT: NCAT, pink oral mucous membrane Neck: Supple, no venous distention CVS: S1S2 RRR with no murmur, rub or gallop Chest: Clear to auscultation Abdomen: Obese,, soft, nontender, no organomegaly, bowel sounds are present Extremities: No edema Skin hyperpigmentation in the legs and feet Genitourinary deferred Neuro: Awake, alert no focal deficits - Vital Signs Vital signs: Vital Signs - 12hr 01/23/19 01/23/19 01/23/19 10:30 11:00 11:07 Temperature 97.5 F L Pulse Rate 84 84 88 Respiratory 16 Rate Blood Pressure 172/112 172/112 O2 Sat by Pulse Oximetry 01/23/19 01/23/19 01/23/19 11:15 11:30 11:33 Temperature Pulse Rate 86 79 79 Respiratory Rate Blood Pressure 184/104 198/116 196/116 O2 Sat by Pulse Oximetry 01/23/19 01/23/19 01/23/19 11:45 12:02 12:15 Temperature Pulse Rate 90 89 88 Respiratory Rate Blood Pressure 190/111 195/118 193/120 O2 Sat by Pulse Oximetry 01/23/19 01/23/19 01/23/19 12:28 12:36 12:45 Temperature Pulse Rate 88 96 H 95 H Respiratory Rate Blood Pressure 193/120 177/123 187/104 O2 Sat by Pulse Oximetry 01/23/19 01/23/19 01/23/19 13:00 13:15 13:30 Temperature Pulse Rate 94 H 95 H 94 H Respiratory Rate Blood Pressure 166/109 156/90 170/93 O2 Sat by Pulse Oximetry 01/23/19 01/23/19 01/23/19 13:45 13:50 13:59 Temperature 97.6 F Pulse Rate 95 H 93 H 93 H Respiratory 16 Rate Blood Pressure 168/99 169/99 169/99 O2 Sat by Pulse Oximetry 01/23/19 01/23/19 01/23/19 14:51 14:52 14:56 Temperature Pulse Rate 104 H 104 H Respiratory 18 Rate Blood Pressure 157/113 157/113 157/113 O2 Sat by Pulse Oximetry 01/23/19 19:44 Temperature 98.0 F Pulse Rate 88 Respiratory 20 Rate Blood Pressure 147/90 O2 Sat by Pulse 94 Oximetry - Lab 01/23/19 04:56 01/23/19 04:56 Most recent lab results Calcium 4.9 mg/dL (8.4-10.2) L* 01/23/19 04:56 Phosphorus 11.00 mg/dL (2.5-4.5) H 01/22/19 00:17 Magnesium 1.80 mg/dL (1.7-2.3) 01/23/19 04:56 Medications & Allergies - Medications Allergies/Adverse Reactions: Allergies No Known Allergies Allergy (Unverified 09/30/13 13:19) Home Medications: Home Medications Medication Instructions Recorded Confirmed Last Taken Type Furosemide 01/22/19 Unknown History NIFEdipine 01/22/19 Unknown History carvediloL 01/22/19 Unknown History hydrALAZINE 01/22/19 Unknown History Active Medications: Generic Name Dose Route Start Last Admin Trade Name Freq PRN Reason Stop Dose Admin Acetaminophen 650 mg 01/22/19 00:09 01/22/19 05:49 Tylenol PO 650 mg Q4H PRN Administration Pain MILD(1-3)/Fever >100.5/SIERRA Aspirin 325 mg 01/23/19 10:00 01/23/19 14:51 Aspirin PO 325 mg QDAY GUNNER Administration Calcium Acetate 667 mg 01/22/19 01:25 01/23/19 17:57 Phoslo PO 667 mg TIDWM GUNNER Administration Carvedilol 25 mg 01/23/19 10:00 01/23/19 14:51 Coreg PO 25 mg BID GUNNER Administration Clonidine HCl 0.2 mg 01/23/19 10:00 01/23/19 12:28 Catapres PO 0.2 mg Q12HR GUNNER Administration Epoetin Kamran 10,000 unit 01/22/19 19:55 Procrit IV LUDIVINA PRN hemodialysis Furosemide 40 mg 01/22/19 14:30 01/23/19 14:51 Lasix PO 40 mg QDAY GUNNER Administration Heparin Sodium (Porcine) 5,000 unit 01/23/19 22:00 Heparin SUB-Q Q12HR GUNNER Hydralazine HCl 10 mg 01/22/19 14:30 01/23/19 11:33 Apresoline IV 10 mg Q4H PRN Administration Blood Pressure Hydralazine HCl 100 mg 01/23/19 14:00 01/23/19 14:52 Apresoline PO 100 mg Q8HR GUNNER Administration Ceftriaxone Sodium 1 gm in 50 mls @ 100 mls/hr 01/22/19 15:00 01/23/19 14:53 Rocephin/Ns 1 Gm/50 Ml IV 100 mls/hr Q24HR GUNNER Administration Protocol Sodium Chloride 100 mls @ 999 mls/hr 01/22/19 19:55 Nacl 0.9% IV LUDIVINA PRN Hypotension Sodium Chloride 100 mls @ 999 mls/hr 01/23/19 11:07 Nacl 0.9% IV LUDIVINA PRN Hypotension Nifedipine 60 mg 01/22/19 14:30 01/23/19 14:53 Procardia Xl PO 60 mg QDAY GUNNER Administration Ondansetron HCl 4 mg 01/22/19 00:09 Zofran IV Q8H PRN Nausea And Vomiting Polyethylene Glycol 17 gm 01/22/19 14:30 Miralax 3350 PO QDAY PRN Constipation Sodium Chloride 10 ml 01/22/19 10:00 01/23/19 14:53 Sodium Chloride Flush Syringe 10 Ml IV 10 ml BID GUNNER Administration Sodium Chloride 10 ml 01/22/19 00:09 Sodium Chloride Flush Syringe 10 Ml IV PRN PRN LINE FLUSH
[2019-01-23] MEDS: HEPARIN 5,000 UNIT/1 ML VIAL SUB-Q SCH (21:43)
[2019-01-24] MEDS: hydrALAZINE 25 MG TAB PO SCH ×3 (06:00→23:38)
[2019-01-24] MEDS: CALCIUM ACETATE 667 MG CAP PO SCH ×3 (08:57→16:45)
[2019-01-24] MEDS: ASPIRIN 325 MG TAB PO SCH (09:00)
[2019-01-24] MEDS: NIFEdipine XL 60 MG TAB PO SCH (09:00)
[2019-01-24] MEDS: cloNIDine 0.2 MG TAB PO SCH ×2 (09:00→23:39)
[2019-01-24] MEDS: carvediloL 12.5 MG TAB PO SCH ×2 (09:01→23:38)
[2019-01-24] MEDS: FUROSEMIDE 40 MG TAB PO SCH (09:02)
[2019-01-24] MEDS: HEPARIN 5,000 UNIT/1 ML VIAL SUB-Q SCH ×2 (09:02→23:39)
--- NOTE | 2019-01-24 11:41 | Progress Note ---
Assessment and Plan Echo reviewed. Pt's minimally elevated troponins appear nonspecific at this time in setting of acute on chronic renal failure and uncontrolled HTN. Pt denies chest pain. Currently stable cardiac status. Cont present cardiac management. Nothing further to add from cardiac perspective at this time. Will sign off. Recommend pt f/u in our office with Dr. Silver within 1-2 weeks of hospital discharge ([phone]). The patient has been seen in conjunction with Dr. Silver who agrees with the assessment and plan of care. - Patient Problems (1) Acute on chronic renal failure Current Visit: Yes Status: Acute (2) Nausea and vomiting Current Visit: Yes Status: Acute (3) Abdominal pain Current Visit: Yes Status: Acute (4) Uncontrolled hypertension Current Visit: Yes Status: Acute (5) Elevated troponin Current Visit: Yes Status: Acute (6) Suspected sleep apnea Current Visit: Yes Status: Chronic (7) Obesity Current Visit: Yes Status: Chronic (8) Medical non-compliance Current Visit: Yes Status: Chronic Subjective Date of service: 01/24/19 Principal diagnosis: A/CKD; elevated trop Interval history: pt resting in bed, s/p HD yesterday, no current complaints. in SR. Objective Last Vital Signs Temp 98.1 F 01/24/19 08:27 Pulse 94 H 01/24/19 09:01 Resp 20 01/24/19 08:27 BP 142/76 01/24/19 09:01 Pulse Ox 95 01/24/19 10:04 - Physical Examination General: No Apparent Distress HEENT: Positive: PERRL, Normocephaly, Mucus Membranes Moist Neck: Positive: neck supple, trachea midline Cardiac: Positive: Reg Rate and Rhythm, S1/S2 Lungs: Positive: Decreased Breath Sounds Neuro: Positive: Grossly Intact Abdomen: Negative: Tender Skin: Negative: Rash Musculoskeletal: No Pain Extremities: Present: edema (trace BLE) - Imaging and Cardiology EKG: report reviewed, image reviewed Echo: pending - EKG Sinus rhythms and dysrhythmias: sinus rhythm Repolarization changes or abnormalities: ST or T wave suggestive of ischemia (lateral t-wave inversions)
[2019-01-24] MEDS: EPOETIN ALFA 10,000 UNIT/1 ML INJ IV PRN (14:46)
--- NOTE | 2019-01-24 15:35 | Progress Note ---
Assessment and Plan Assessment and plan: Patient is a [age] -year-old man history of hypertension, chronic kidney disease comes emergency room complaining of nausea vomiting 1-1/2 weeks, cramping and shortness of breath. Also complaining of decreased oral intake. He has not taken any antihypertensive in the last 2 months because he got tired of taking it, he was on 6 antihypertensives. Creatinine was found to be 19.3. * CT abd/pelvis without contrast Impression: Negative for obstruction or localized, moderate/large fat containing ventral hernia * Renal US IMPRESSION: 1. Negative for obstruction or localized inflammation. 2. Small bilateral renal cysts. * V/Q low probability for PE * pCXR nothing acute Acute on chronic renal failure 4, due to ATN/vasomotor nephropathy: consulted nephrology, possible need HD suspected new ESRD: tunnel HD cath place right chest wall and first HD session today 01/23/19 Hypertension malignant; wean off cardene drip and start oral antihypertensives Anemia, suspected AOCD: monitor cbc Rhabdo: treat with iv lasix, ?HD hyponatremia, hypervolemic; monitor bmp, may need ultrafiltration Abnormal UA, suspected UTI: Empiric abx Hypomagnesemia: replete and recheck Elevated troponin: serial troponin, consult cardiology Abdominal pain with n/v/d, suspect related to AGE vs gastroparesis type 2 DM, noncompliant with meds: check A1c Hypocalcemia: monitor closely, tele monitoring Obesity, bmi 51.3: lifestyle modification Noncompliance: counseling done DVT ppx: sq heparin History Interval history: Patient was seen and examined. Follow-up on current diagnosis uncontrolled bp, CR ~19. No overnight events reported to me. Patient denies any chest pain, shortness breath, nausea/vomiting or severe headaches. Imaging, nursing note, chart, labs and old chart reviewed. Discussed with patient. Hospitalist Physical - Physical exam Narrative exam: Gen: WDWN, NAD, Awake, Alert, Orientated x 3, bmi 51.3 HEENT: NCAT, EOMI, PERRL, OP Clear Neck: supple, no adenopathy, no thyromegaly, no JVD CVS/Heart: RRR, normal S1S2, pulses present bilaterally Chest/Lungs: diminished bs bilateral, Symmetrical chest expansion, good air entry bilaterally GI/Abdomen: soft, NTND, good bowel sounds, no guarding or rebound /Bladder: no suprapubic tenderness, no CVA or paraspinal tenderness Extermity/Skin: ble edema no obvious rash MSK: FROM x 4 Neuro: CN 2-12 grossly intact, no new focal deficits Psych: calm - Constitutional Vitals: Temp Pulse Resp BP Pulse Ox 97.6 F 74 18 169/100 98 01/24/19 11:37 01/24/19 13:15 01/24/19 12:42 01/24/19 13:15 01/24/19 12:42 General appearance: Present: no acute distress Results - Labs CBC & Chem 7: 01/23/19 04:56 01/23/19 04:56 Labs: Laboratory Last Values WBC 8.4 K/mm3 (4.5-11.0) 01/23/19 04:56 RBC 3.66 M/mm3 (3.65-5.03) 01/23/19 04:56 Hgb 10.6 gm/dl (11.8-15.2) L 01/23/19 04:56 Hct 31.7 % (35.5-45.6) L 01/23/19 04:56 MCV 87 fl (84-94) 01/23/19 04:56 MCH 29 pg (28-32) 01/23/19 04:56 MCHC 33 % (32-34) 01/23/19 04:56 RDW 15.1 % (13.2-15.2) 01/23/19 04:56 Plt Count 188 K/mm3 (140-440) 01/23/19 04:56 Lymph % (Auto) 15.5 % (13.4-35.0) 01/23/19 04:56 [place] % (Auto) 5.2 % (0.0-7.3) 01/23/19 04:56 Eos % (Auto) 2.2 % (0.0-4.3) 01/23/19 04:56 Baso % (Auto) 0.5 % (0.0-1.8) 01/23/19 04:56 Lymph # 1.3 K/mm3 (1.2-5.4) 01/23/19 04:56 [place] # 0.4 K/mm3 (0.0-0.8) 01/23/19 04:56 Eos # 0.2 K/mm3 (0.0-0.4) 01/23/19 04:56 Baso # 0.0 K/mm3 (0.0-0.1) 01/23/19 04:56 Seg Neutrophils % 76.6 % (40.0-70.0) H 01/23/19 04:56 Seg Neutrophils # 6.4 K/mm3 (1.8-7.7) 01/23/19 04:56 D-Dimer 1597.67 ng/mlDDU (0-234) H 01/21/19 19:14 Sodium 135 mmol/L (137-145) L 01/23/19 04:56 Potassium 3.9 mmol/L (3.6-5.0) 01/23/19 04:56 Chloride 98.5 mmol/L (98-107) 01/23/19 04:56 Carbon Dioxide 11 mmol/L (22-30) L 01/23/19 04:56 Anion Gap 29 mmol/L 01/23/19 04:56 BUN 117 mg/dL (9-20) H 01/23/19 04:56 Creatinine 18.8 mg/dL (0.8-1.5) H 01/23/19 04:56 Estimated GFR 3 ml/min 01/23/19 04:56 BUN/Creatinine Ratio 6 % 01/23/19 04:56 Glucose 88 mg/dL (75-100) 01/23/19 04:56 POC Glucose 94 (70-105) 01/21/19 18:36 Hemoglobin A1c 5.7 % (4-6) 01/23/19 04:56 Calcium 4.9 mg/dL (8.4-10.2) L* 01/23/19 04:56 Phosphorus 11.00 mg/dL (2.5-4.5) H 01/22/19 00:17 Magnesium 1.80 mg/dL (1.7-2.3) 01/23/19 04:56 Total Bilirubin 0.20 mg/dL (0.1-1.2) 01/21/19 19:14 AST 17 units/L (5-40) 01/21/19 19:14 ALT 9 units/L (7-56) 01/21/19 19:14 Alkaline Phosphatase 183 units/L (35-129) H 01/21/19 19:14 Total Creatine Kinase 1658 units/L (55-170) H 01/22/19 06:50 CK-MB (CK-2) 5.6 ng/mL (0.0-4.0) H 01/22/19 06:50 CK-MB (CK-2) Rel Index 0.3 (0-4) 01/22/19 06:50 Troponin T 0.074 ng/mL (0.00-0.029) H 01/23/19 00:31 NT-Pro-B Natriuret Pep 43499 pg/mL (0-450) H 01/21/19 19:14 Total Protein 8.2 g/dL (6.3-8.2) 01/21/19 19:14 Albumin 3.5 g/dL (3.9-5) L 01/21/19 19:14 Albumin/Globulin Ratio 0.7 % 01/21/19 19:14 Triglycerides 99 mg/dL (2-149) 01/22/19 01:09 Cholesterol 147 mg/dL (50-199) 01/22/19 01:09 LDL Cholesterol Direct 106 mg/dL (50-130) 01/22/19 01:09 HDL Cholesterol 33 mg/dL (40-59) L 01/22/19 01:09 Cholesterol/HDL Ratio 4.45 % 01/22/19 01:09 Lipase 105 units/L (13-60) H 01/21/19 19:14 Urine Color Straw (Yellow) 01/22/19 05:03 Urine Turbidity Clear (Clear) 01/22/19 05:03 Urine pH 6.0 (5.0-7.0) 01/22/19 05:03 Ur Specific [place] 1.008 (1.003-1.030) 01/22/19 05:03 Urine Protein >500 mg/dL (Negative) 01/22/19 05:03 Urine Glucose (UA) 50 mg/dL (Negative) 01/22/19 05:03 Urine Ketones Neg mg/dL (Negative) 01/22/19 05:03 Urine Blood Sm (Negative) 01/22/19 05:03 Urine Nitrite Neg (Negative) 01/22/19 05:03 Urine Bilirubin Neg (Negative) 01/22/19 05:03 Urine Urobilinogen < 2.0 mg/dL (<2.0) 01/22/19 05:03 Ur Leukocyte Esterase Tr (Negative) 01/22/19 05:03 Urine WBC (Auto) 18.0 /HPF (0.0-6.0) H 01/22/19 05:03 Urine RBC (Auto) 3.0 /HPF (0.0-6.0) 01/22/19 05:03 U Epithel Cells (Auto) 1.0 /HPF (0-13.0) 01/22/19 05:03 Urine Mucus Few /HPF 01/22/19 05:03 Hep Bs Antigen Non-reactive (Negative) 01/23/19 04:56 Hepatitis C Antibody Non-reactive (NonReactive) 01/23/19 04:56 Active Medications - Current Medications Current Medications: Generic Name Dose Route Start Last Admin Trade Name Freq PRN Reason Stop Dose Admin Acetaminophen 650 mg 01/22/19 00:09 01/22/19 05:49 Tylenol PO 650 mg Q4H PRN Administration Pain MILD(1-3)/Fever >100.5/SIERRA Aspirin 325 mg 01/23/19 10:00 01/24/19 09:00 Aspirin PO 325 mg QDAY GUNNER Administration Calcium Acetate 667 mg 01/22/19 01:25 01/24/19 14:45 Phoslo PO Not Given TIDWM GUNNER Carvedilol 25 mg 01/23/19 10:00 01/24/19 09:01 Coreg PO 25 mg BID GUNNER Administration Clonidine HCl 0.2 mg 01/23/19 10:00 01/24/19 09:00 Catapres PO 0.2 mg Q12HR GUNNER Administration Epoetin Kamran 10,000 unit 01/22/19 19:55 01/24/19 14:46 Procrit IV 10,000 unit LUDIVINA PRN Administration hemodialysis Furosemide 40 mg 01/22/19 14:30 01/24/19 09:02 Lasix PO 40 mg QDAY GUNNER Administration Heparin Sodium (Porcine) 5,000 unit 01/23/19 22:00 01/24/19 09:02 Heparin SUB-Q 5,000 unit Q12HR GUNNER Administration Hydralazine HCl 10 mg 01/22/19 14:30 01/23/19 11:33 Apresoline IV 10 mg Q4H PRN Administration Blood Pressure Hydralazine HCl 100 mg 01/23/19 14:00 01/24/19 06:00 Apresoline PO 100 mg Q8HR GUNNER Administration Ceftriaxone Sodium 1 gm in 50 mls @ 100 mls/hr 01/22/19 15:00 01/23/19 14:53 Rocephin/Ns 1 Gm/50 Ml IV 100 mls/hr Q24HR GUNNER Administration Protocol Sodium Chloride 100 mls @ 999 mls/hr 01/23/19 11:07 Nacl 0.9% IV LUDIVINA PRN Hypotension Nifedipine 60 mg 01/22/19 14:30 01/24/19 09:00 Procardia Xl PO 60 mg QDAY GUNNER Administration Ondansetron HCl 4 mg 01/22/19 00:09 Zofran IV Q8H PRN Nausea And Vomiting Polyethylene Glycol 17 gm 01/22/19 14:30 Miralax 3350 PO QDAY PRN Constipation Sodium Chloride 10 ml 01/22/19 10:00 01/24/19 09:08 Sodium Chloride Flush Syringe 10 Ml IV 10 ml BID GUNNER Administration Sodium Chloride 10 ml 01/22/19 00:09 Sodium Chloride Flush Syringe 10 Ml IV PRN PRN LINE FLUSH
[2019-01-24] MEDS: cefTRIAXone/NS 1 GM/50 ML 1 GM/50 ML BAG IV SCH (16:45)
--- NOTE | 2019-01-24 17:02 | Vascular Lab Report ---
DOPPLER ULTRASOUND UPPER EXTREMITY VENOUS MAPPING, BILATERAL INDICATION / CLINICAL INFORMATION: BUE VEIN MAPPING FOR AVF/AVG; ESRD TECHNIQUE: Grayscale, color and spectral Doppler imaging of the venous system of the right and left upper extrem ities was performed. COMPARISON: None available. FINDINGS: RIGHT UPPER EXTREMITY: Subclavian Vein: Patent. Axillary Vein: Patent. Cephalic Vein (Diameter, in mm): - Upper Arm: 19 - Mid Arm: 17 - Antecubital: 34 - Upper Forearm: 23 - Mid Forearm: 17 - Wrist: 10 Basilic Vein (Diameter, in mm): - Upper Arm: 25 - Mid Arm: 35 - Antecubital: 24 - Upper Forearm: 22 - Mid Forearm: 9 - Wrist: 6 Brachial Artery PSV (Diameter, in mm): Not measured Radial Artery (Diameter, in mm): 31 LEFT UPPER EXTREMITY: Subclavian Vein: Patent. Axillary Vein: Patent. Cephalic Vein (Diameter, in mm): - Upper Arm: 24 - Mid Arm: 23 - Antecubital: 22 - Upper Forearm: 28 - Mid Forearm: 31 - Wrist: 28 Basilic Vein (Diameter, in mm): - Upper Arm: 43 - Mid Arm: 32 - Antecubital: 36 - Upper Forearm: 16 - Mid Forearm: Left - Wrist: 10 Brachial Artery PSV (Diameter, in mm): Not measured Radial Artery (Diameter, in mm): 27 Additional Findings: None. IMPRESSION: 1. No sonographic evidence of deep venous thrombosis. 2. Upper extremity venous mapping as above. Signer Name: Abdoul Acosta MD Signed: 01/24/2019 4:58 PM Workstation Name: [id number]
[2019-01-24] MEDS ORDERED: SODIUM CHLORIDE*PRIMING MACHINE ONLY FOR DIALYSIS MC ONE (17:40)
--- NOTE | 2019-01-24 18:28 | Progress Note ---
Assessment and Plan - Patient Problems (1) Chronic kidney disease, stage 5 Current Visit: Yes Status: Acute Plan to address problem: Patient has chronic kidney disease which appears to have progressed to stage V chronic kidney disease. Presented with uremic symptoms and metabolic acidosis. Started on hemoialysis. Tolerating treatment so far. Had Vein mapping for AV fistula. We'll discuss with vascular about getting fistula during this admissio n the patient is still in the hospital. Awaiting completion of arrangements for outpatient dialysis (2) Hypertensive chronic kidney disease with stage 5 chronic kidney disease or end stage renal disease Current Visit: Yes Status: Acute Plan to address problem: Continue oral antihypertensive medications and follow-up blood pressure (3) Metabolic acidosis Current Visit: Yes Status: Acute Plan to address problem: Bicarbonate improving with dialysis. Follow-up level (4) Hypertensive urgency Current Visit: Yes Status: Acute Plan to address problem: The blood pressure is improving. Follow-up blood pressure on current medications (5) Nausea and vomiting Current Visit: Yes Status: Acute Plan to address problem: Probably secondary to uremia. By mouth antiemetic . 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 He has no new complaints. Had dialysis earlier. Feels better Objective - Exam Narrative Exam: Heavily built middle-aged -Turkish male lying in bed in no acute distress HEENT: NCAT, pink oral mucous membrane Neck: Supple, no venous distention CVS: S1S2 RRR with no murmur, rub or gallop Chest: Clear to auscultation Abdomen: Obese,, soft, nontender, no organomegaly, bowel sounds are present Extremities: No edema Skin hyperpigmentation in the legs and feet Genitourinary deferred Neuro: Awake, alert no focal deficits - Vital Signs Vital signs: Vital Signs - 12hr 01/24/19 01/24/19 01/24/19 08:27 09:00 09:01 Temperature 98.1 F Pulse Rate 93 H 94 H 94 H Respiratory 20 Rate Blood Pressure 142/76 142/76 142/76 O2 Sat by Pulse 94 Oximetry 01/24/19 01/24/19 01/24/19 10:00 10:04 11:37 Temperature 97.6 F Pulse Rate 80 80 Respiratory 18 Rate Blood Pressure 150/87 O2 Sat by Pulse 95 Oximetry 01/24/19 01/24/19 01/24/19 12:00 12:15 12:30 Temperature Pulse Rate 71 70 67 Respiratory Rate Blood Pressure 171/139 142/76 162/95 O2 Sat by Pulse Oximetry 01/24/19 01/24/19 01/24/19 12:42 12:45 13:00 Temperature Pulse Rate 73 69 Respiratory 18 Rate Blood Pressure 174/97 163/92 O2 Sat by Pulse 98 Oximetry 01/24/19 01/24/19 01/24/19 13:15 14:50 16:44 Temperature 97.9 F Pulse Rate 74 70 94 H Respiratory 18 Rate Blood Pressure 169/100 165/98 143/87 O2 Sat by Pulse Oximetry - Lab 01/23/19 04:56 01/23/19 04:56 Most recent lab results Calcium 4.9 mg/dL (8.4-10.2) L* 01/23/19 04:56 Phosphorus 11.00 mg/dL (2.5-4.5) H 01/22/19 00:17 Magnesium 1.80 mg/dL (1.7-2.3) 01/23/19 04:56 Medications & Allergies - Medications Allergies/Adverse Reactions: Allergies No Known Allergies Allergy (Unverified 09/30/13 13:19) Home Medications: Home Medications Medication Instructions Recorded Confirmed Last Taken Type Furosemide 01/22/19 Unknown History NIFEdipine 01/22/19 Unknown History carvediloL 01/22/19 Unknown History hydrALAZINE 01/22/19 Unknown History Active Medications: Generic Name Dose Route Start Last Admin Trade Name Freq PRN Reason Stop Dose Admin Acetaminophen 650 mg 01/22/19 00:09 01/22/19 05:49 Tylenol PO 650 mg Q4H PRN Administration Pain MILD(1-3)/Fever >100.5/SIERRA Aspirin 325 mg 01/23/19 10:00 01/24/19 09:00 Aspirin PO 325 mg QDAY GUNNER Administration Calcium Acetate 667 mg 01/22/19 01:25 01/24/19 16:45 Phoslo PO 667 mg TIDWM GUNNER Administration Carvedilol 25 mg 01/23/19 10:00 01/24/19 09:01 Coreg PO 25 mg BID GUNNER Administration Clonidine HCl 0.2 mg 01/23/19 10:00 01/24/19 09:00 Catapres PO 0.2 mg Q12HR GUNNER Administration Epoetin Kamran 10,000 unit 01/22/19 19:55 01/24/19 14:46 Procrit IV 10,000 unit LUDIVINA PRN Administration hemodialysis Furosemide 40 mg 01/22/19 14:30 01/24/19 09:02 Lasix PO 40 mg QDAY GUNNER Administration Heparin Sodium (Porcine) 5,000 unit 01/23/19 22:00 01/24/19 09:02 Heparin SUB-Q 5,000 unit Q12HR GUNNER Administration Hydralazine HCl 10 mg 01/22/19 14:30 01/23/19 11:33 Apresoline IV 10 mg Q4H PRN Administration Blood Pressure Hydralazine HCl 100 mg 01/23/19 14:00 01/24/19 16:44 Apresoline PO 100 mg Q8HR GUNNER Administration Ceftriaxone Sodium 1 gm in 50 mls @ 100 mls/hr 01/22/19 15:00 01/24/19 16:45 Rocephin/Ns 1 Gm/50 Ml IV 100 mls/hr Q24HR GUNNER Administration Protocol Sodium Chloride 100 mls @ 999 mls/hr 01/23/19 11:07 Nacl 0.9% IV LUDIVINA PRN Hypotension Nifedipine 60 mg 01/22/19 14:30 01/24/19 09:00 Procardia Xl PO 60 mg QDAY GUNNER Administration Ondansetron HCl 4 mg 01/22/19 00:09 Zofran IV Q8H PRN Nausea And Vomiting Polyethylene Glycol 17 gm 01/22/19 14:30 Miralax 3350 PO QDAY PRN Constipation Sodium Chloride 10 ml 01/22/19 10:00 01/24/19 09:08 Sodium Chloride Flush Syringe 10 Ml IV 10 ml BID GUNNER Administration Sodium Chloride 10 ml 01/22/19 00:09 Sodium Chloride Flush Syringe 10 Ml IV PRN PRN LINE FLUSH
[2019-01-25] MEDS: hydrALAZINE 25 MG TAB PO SCH ×3 (05:51→21:56)
[2019-01-25] MEDS: CALCIUM ACETATE 667 MG CAP PO SCH ×3 (08:48→17:51)
[2019-01-25] MEDS: HEPARIN 5,000 UNIT/1 ML VIAL SUB-Q SCH ×2 (09:52→21:57)
[2019-01-25] MEDS: carvediloL 12.5 MG TAB PO SCH ×2 (09:53→21:56)
[2019-01-25] MEDS: cloNIDine 0.2 MG TAB PO SCH ×2 (09:53→21:56)
[2019-01-25] MEDS: ASPIRIN 325 MG TAB PO SCH (09:53)
[2019-01-25] MEDS: NIFEdipine XL 60 MG TAB PO SCH (09:53)
[2019-01-25] MEDS: cefTRIAXone/NS 1 GM/50 ML 1 GM/50 ML BAG IV SCH (09:54)
[2019-01-25] MEDS: FUROSEMIDE 40 MG TAB PO SCH (09:54)
[2019-01-25 10:17] LABS: Hematocrit 28.6 % (35.5-45.6); Hemoglobin 9.5 gm/dl (11.8-15.2); Mean Corpuscular HGB Conc 33 % (32-34); Mean Corpuscular Volume 87 fl (84-94); Platelet Count 179 K/mm3 (140-440); Red Blood Count 3.29 M/mm3 (3.65-5.03); Red Cell Distribution Width 15.4 % (13.2-15.2)
--- NOTE | 2019-01-25 10:33 | Progress Note ---
Assessment and Plan - Patient Problems (1) Chronic kidney disease, stage 5 Current Visit: Yes Status: Acute Plan to address problem: Patient has chronic kidney disease which appears to have progressed to stage V chronic kidney disease. Presented with uremic symptoms and metabolic acidosis. Started on hemoialysis. Tolerating treatment so far. Had Vein mapping for AV fistula. Hemodialysis again today. Awaiting completion of arrangements for out patient dialysis (2) Hypertensive chronic kidney disease with stage 5 chronic kidney disease or end stage renal disease Current Visit: Yes Status: Acute Plan to address problem: Continue oral antihypertensive medications and follow-up blood pressure (3) Metabolic acidosis Current Visit: Yes Status: Acute Plan to address problem: Bicarbonate improving with dialysis. Follow-up level (4) Hypertensive urgency Current Visit: Yes Status: Acute Plan to address problem: The blood pressure is improving. Follow-up blood pressure on current medications (5) Nausea and vomiting Current Visit: Yes Status: Acute Plan to address problem: Probably secondary to uremia. By mouth antiemetic . 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 He has no new complaints. No chest pain or shortness of breath. No nausea or vomiting Objective - Exam Narrative Exam: Heavily built middle-aged -[place] male lying in bed in no acute distress HEENT: NCAT, pink oral mucous membrane Neck: Supple, no venous distention CVS: S1S2 RRR with no murmur, rub or gallop Chest: Clear to auscultation Abdomen: Obese,, soft, nontender, no organomegaly, bowel sounds are present Extremities: No edema Skin hyperpigmentation in the legs and feet Genitourinary deferred Neuro: Awake, alert no focal deficits - Vital Signs Vital signs: Vital Signs - 12hr 01/24/19 01/24/19 01/25/19 23:38 23:39 00:07 Temperature 98.4 F Pulse Rate 88 88 90 Respiratory 18 Rate Blood Pressure 128/84 128/84 154/84 O2 Sat by Pulse 94 Oximetry 01/25/19 01/25/19 01/25/19 03:53 05:51 09:53 Temperature 97.6 F Pulse Rate 83 83 92 H Respiratory 20 Rate Blood Pressure 116/70 116/70 140/92 O2 Sat by Pulse 97 Oximetry - Lab 01/23/19 04:56 01/23/19 04:56 Most recent lab results Calcium 4.9 mg/dL (8.4-10.2) L* 01/23/19 04:56 Phosphorus 11.00 mg/dL (2.5-4.5) H 01/22/19 00:17 Magnesium 1.80 mg/dL (1.7-2.3) 01/23/19 04:56 Medications & Allergies - Medications Allergies/Adverse Reactions: Allergies No Known Allergies Allergy (Unverified 09/30/13 13:19) Home Medications: Home Medications Medication Instructions Recorded Confirmed Last Taken Type Furosemide 01/22/19 Unknown History NIFEdipine 01/22/19 Unknown History carvediloL 01/22/19 Unknown History hydrALAZINE 01/22/19 Unknown History Active Medications: Generic Name Dose Route Start Last Admin Trade Name Freq PRN Reason Stop Dose Admin Acetaminophen 650 mg 01/22/19 00:09 01/22/19 05:49 Tylenol PO 650 mg Q4H PRN Administration Pain MILD(1-3)/Fever >100.5/SIERRA Aspirin 325 mg 01/23/19 10:00 01/25/19 09:53 Aspirin PO 325 mg QDAY GUNNER Administration Calcium Acetate 667 mg 01/22/19 01:25 01/25/19 08:48 Phoslo PO 667 mg TIDWM GUNNER Administration Carvedilol 25 mg 01/23/19 10:00 01/25/19 09:53 Coreg PO 25 mg BID GUNNER Administration Clonidine HCl 0.2 mg 01/23/19 10:00 01/25/19 09:53 Catapres PO 0.2 mg Q12HR GUNNER Administration Epoetin Kamran 10,000 unit 01/22/19 19:55 01/24/19 14:46 Procrit IV 10,000 unit LUDIVINA PRN Administration hemodialysis Furosemide 40 mg 01/22/19 14:30 01/25/19 09:54 Lasix PO 40 mg QDAY GUNNER Administration Heparin Sodium (Porcine) 5,000 unit 01/23/19 22:00 01/25/19 09:52 Heparin SUB-Q 5,000 unit Q12HR GUNNER Administration Hydralazine HCl 10 mg 01/22/19 14:30 01/23/19 11:33 Apresoline IV 10 mg Q4H PRN Administration Blood Pressure Hydralazine HCl 100 mg 01/23/19 14:00 01/25/19 05:51 Apresoline PO Not Given Q8HR GUNNER Ceftriaxone Sodium 1 gm in 50 mls @ 100 mls/hr 01/22/19 15:00 01/25/19 09:54 Rocephin/Ns 1 Gm/50 Ml IV 100 mls/hr Q24HR GUNNER Administration Protocol Sodium Chloride 100 mls @ 999 mls/hr 01/23/19 11:07 Nacl 0.9% IV LUDIVINA PRN Hypotension Nifedipine 60 mg 01/22/19 14:30 01/25/19 09:53 Procardia Xl PO 60 mg QDAY GUNNER Administration Ondansetron HCl 4 mg 01/22/19 00:09 Zofran IV Q8H PRN Nausea And Vomiting Polyethylene Glycol 17 gm 01/22/19 14:30 Miralax 3350 PO QDAY PRN Constipation Sodium Chloride 10 ml 01/22/19 10:00 01/25/19 09:54 Sodium Chloride Flush Syringe 10 Ml IV 10 ml BID GUNNER Administration Sodium Chloride 10 ml 01/22/19 00:09 Sodium Chloride Flush Syringe 10 Ml IV PRN PRN LINE FLUSH
[2019-01-25] MEDS: EPOETIN ALFA 10,000 UNIT/1 ML INJ IV PRN (14:42)
--- NOTE | 2019-01-25 17:21 | Progress Note ---
Assessment and Plan - Patient Problems (1) Abdominal pain Current Visit: Yes Status: Acute Plan to address problem: Dominant pain has resolved was secondary to renal failure. Patient also had malignant hypertension much improved. (2) Acute on chronic renal failure Current Visit: Yes Status: Acute Plan to address problem: He shouldn't currently has been accepted to dialysis just awaiting the chair time. (3) Atypical chest pain Current Visit: Yes Status: Acute (4) Medical non-compliance Current Visit: Yes Status: Chronic Plan to address problem: Educational compliance with literature. (5) Obesity Current Visit: Yes Status: Chronic Plan to address problem: Suggest exercise diet low carb diet. Patient does not appear motivated to stop at this time. Loss exercise. Subjective Date of service: 01/25/19 Principal diagnosis: A/CKD; elevated trop Interval history: Patient now onset renal failure feels good. Hospital course uncomplicated. Patient still awaiting on hemodialysis chair. Pain no shortness of breath no different exertion. Objective - Constitutional Vitals: Vital Signs - 12hr 01/25/19 01/25/19 01/25/19 05:51 09:53 10:00 Temperature Pulse Rate 83 92 H 81 Respiratory Rate Blood Pressure 116/70 140/92 O2 Sat by Pulse 95 Oximetry 01/25/19 01/25/19 01/25/19 11:38 11:44 12:00 Temperature 98.1 F Pulse Rate 74 74 73 Respiratory 18 Rate Blood Pressure 138/82 138/82 168/96 O2 Sat by Pulse Oximetry 01/25/19 01/25/19 01/25/19 12:15 12:30 12:45 Temperature Pulse Rate 72 76 68 Respiratory Rate Blood Pressure 166/95 163/86 156/92 O2 Sat by Pulse Oximetry 01/25/19 01/25/19 01/25/19 13:00 13:15 13:30 Temperature Pulse Rate 72 76 66 Respiratory Rate Blood Pressure 156/94 153/93 142/85 O2 Sat by Pulse Oximetry 01/25/19 01/25/19 01/25/19 13:45 14:00 14:15 Temperature Pulse Rate 74 64 67 Respiratory Rate Blood Pressure 149/79 168/94 193/105 O2 Sat by Pulse Oximetry 01/25/19 01/25/19 01/25/19 14:30 14:45 15:00 Temperature Pulse Rate 69 66 63 Respiratory Rate Blood Pressure 188/103 176/98 179/107 O2 Sat by Pulse Oximetry General appearance: Present: no acute distress, well-nourished - EENT Eyes: PERRL, EOM intact ENT: hearing intact, clear oral mucosa Ears: bilateral: normal - Neck Neck: supple, normal ROM - Respiratory Respiratory effort: normal Respiratory: bilateral: CTA - Breasts Breasts: normal - Cardiovascular Rhythm: regular Heart Sounds: Present: S1 & S2. Absent: gallop, rub Extremities: pulses intact, No edema, normal color, Full ROM - Gastrointestinal General gastrointestinal: Present: soft, non-tender, non-distended, normal bowel sounds, other (morbidly obese) - Genitourinary Male genitourinary: normal - Integumentary Integumentary: clear, warm, dry - Musculoskeletal Musculoskeletal: 1, strength equal bilaterally - Neurologic Neurologic: moves all extremities - Psychiatric Psychiatric: memory intact, appropriate mood/affect, intact judgment & insight - Labs CBC & Chem 7: 01/25/19 10:03 01/25/19 10:03 Labs: Abnormal lab results 01/25/19 01/25/19 Range/Units 10:03 10:03 RBC 3.29 L (3.65-5.03) M/mm3 Hgb 9.5 L (11.8-15.2) gm/dl Hct 28.6 L (35.5-45.6) % RDW 15.4 H (13.2-15.2) % Sodium 133 L (137-145) mmol/L Chloride 95.7 L (98-107) mmol/L Carbon Dioxide 18 L D (22-30) mmol/L BUN 68 H (9-20) mg/dL Creatinine 12.5 H (0.8-1.5) mg/dL Glucose 120 H (75-100) mg/dL Calcium 6.0 L D (8.4-10.2) mg/dL
[2019-01-26] MEDS: hydrALAZINE 25 MG TAB PO SCH ×3 (05:45→22:14)
[2019-01-26] MEDS: CALCIUM ACETATE 667 MG CAP PO SCH ×3 (08:44→17:58)
[2019-01-26] MEDS: HEPARIN 5,000 UNIT/1 ML VIAL SUB-Q SCH ×2 (10:18→22:15)
[2019-01-26] MEDS: NIFEdipine XL 60 MG TAB PO SCH (10:18)
[2019-01-26] MEDS: ASPIRIN 325 MG TAB PO SCH (10:18)
[2019-01-26] MEDS: FUROSEMIDE 40 MG TAB PO SCH (10:18)
[2019-01-26] MEDS: carvediloL 12.5 MG TAB PO SCH ×2 (10:18→22:14)
[2019-01-26] MEDS: cefTRIAXone/NS 1 GM/50 ML 1 GM/50 ML BAG IV SCH (10:19)
[2019-01-26] MEDS: cloNIDine 0.2 MG TAB PO SCH ×2 (10:19→22:15)
--- NOTE | 2019-01-26 14:04 | Progress Note ---
Assessment and Plan - Patient Problems (1) Abdominal pain Current Visit: Yes Status: Acute Plan to address problem: Dominant pain has resolved was secondary to renal failure. Patient also had malignant hypertension much improved. (2) Acute on chronic renal failure Current Visit: Yes Status: Acute Plan to address problem: Undergoing hemodialysis Sunday. Awaiting chair time. Anticipated discharge Sunday. (3) Atypical chest pain Current Visit: Yes Status: Acute (4) Medical non-compliance Current Visit: Yes Status: Chronic Plan to address problem: Educational compliance with literature. (5) Obesity Current Visit: Yes Status: Chronic Plan to address problem: Suggest exercise diet low carb diet. Patient does not appear motivated to stop at this time. Loss exercise. History Interval history: pt doing well explain plan awaiting chair time pt understands Hospitalist Physical - Constitutional Vitals: Temp Pulse Resp BP Pulse Ox 97.7 F 94 H 18 128/77 95 01/26/19 08:17 01/26/19 10:19 01/26/19 10:00 01/26/19 10:19 01/26/19 10:00 General appearance: Present: no acute distress, well-nourished - EENT Eyes: Present: PERRL, EOM intact ENT: hearing intact, clear oral mucosa, dentition normal - Neck Neck: Present: supple, normal ROM - Respiratory Respiratory effort: normal Respiratory: bilateral: CTA - Cardiovascular Rhythm: regular - Extremities Extremities: no ischemia, pulses intact, pulses symmetrical, No edema, normal temperature Peripheral Pulses: within normal limits - Abdominal General gastrointestinal: soft, non-tender, non-distended, normal bowel sounds - Integumentary Integumentary: Present: clear, warm, dry - Psychiatric Psychiatric: appropriate mood/affect, intact judgment & insight - Neurologic Neurologic: CNII-XII intact, focal deficits, moves all extremities Results - Labs CBC & Chem 7: 01/25/19 10:03 01/25/19 10:03 Labs: Laboratory Last Values WBC 7.8 K/mm3 (4.5-11.0) 01/25/19 10:03 RBC 3.29 M/mm3 (3.65-5.03) L 01/25/19 10:03 Hgb 9.5 gm/dl (11.8-15.2) L 01/25/19 10:03 Hct 28.6 % (35.5-45.6) L 01/25/19 10:03 MCV 87 fl (84-94) 01/25/19 10:03 MCH 29 pg (28-32) 01/25/19 10:03 MCHC 33 % (32-34) 01/25/19 10:03 RDW 15.4 % (13.2-15.2) H 01/25/19 10:03 Plt Count 179 K/mm3 (140-440) 01/25/19 10:03 Lymph % (Auto) 15.5 % (13.4-35.0) 01/23/19 04:56 [place]es % (Auto) 5.2 % (0.0-7.3) 01/23/19 04:56 Eos % (Auto) 2.2 % (0.0-4.3) 01/23/19 04:56 Baso % (Auto) 0.5 % (0.0-1.8) 01/23/19 04:56 Lymph # 1.3 K/mm3 (1.2-5.4) 01/23/19 04:56 Mayes # 0.4 K/mm3 (0.0-0.8) 01/23/19 04:56 Eos # 0.2 K/mm3 (0.0-0.4) 01/23/19 04:56 Baso # 0.0 K/mm3 (0.0-0.1) 01/23/19 04:56 Seg Neutrophils % 76.6 % (40.0-70.0) H 01/23/19 04:56 Seg Neutrophils # 6.4 K/mm3 (1.8-7.7) 01/23/19 04:56 D-Dimer 1597.67 ng/mlDDU (0-234) H 01/21/19 19:14 Sodium 133 mmol/L (137-145) L 01/25/19 10:03 Potassium 3.7 mmol/L (3.6-5.0) 01/25/19 10:03 Chloride 95.7 mmol/L (98-107) L 01/25/19 10:03 Carbon Dioxide 18 mmol/L (22-30) L D 01/25/19 10:03 Anion Gap 23 mmol/L 01/25/19 10:03 BUN 68 mg/dL (9-20) H 01/25/19 10:03 Creatinine 12.5 mg/dL (0.8-1.5) H 01/25/19 10:03 Estimated GFR 6 ml/min 01/25/19 10:03 BUN/Creatinine Ratio 5 % 01/25/19 10:03 Glucose 120 mg/dL (75-100) H 01/25/19 10:03 POC Glucose 94 (70-105) 01/21/19 18:36 Hemoglobin A1c 5.7 % (4-6) 01/23/19 04:56 Calcium 6.0 mg/dL (8.4-10.2) L D 01/25/19 10:03 Phosphorus 11.00 mg/dL (2.5-4.5) H 01/22/19 00:17 Magnesium 1.80 mg/dL (1.7-2.3) 01/23/19 04:56 Total Bilirubin 0.20 mg/dL (0.1-1.2) 01/21/19 19:14 AST 17 units/L (5-40) 01/21/19 19:14 ALT 9 units/L (7-56) 01/21/19 19:14 Alkaline Phosphatase 183 units/L (35-129) H 01/21/19 19:14 Total Creatine Kinase 1658 units/L (55-170) H 01/22/19 06:50 CK-MB (CK-2) 5.6 ng/mL (0.0-4.0) H 01/22/19 06:50 CK-MB (CK-2) Rel Index 0.3 (0-4) 01/22/19 06:50 Troponin T 0.074 ng/mL (0.00-0.029) H 01/23/19 00:31 NT-Pro-B Natriuret Pep 90550 pg/mL (0-450) H 01/21/19 19:14 Total Protein 8.2 g/dL (6.3-8.2) 01/21/19 19:14 Albumin 3.5 g/dL (3.9-5) L 01/21/19 19:14 Albumin/Globulin Ratio 0.7 % 01/21/19 19:14 Triglycerides 99 mg/dL (2-149) 01/22/19 01:09 Cholesterol 147 mg/dL (50-199) 01/22/19 01:09 LDL Cholesterol Direct 106 mg/dL (50-130) 01/22/19 01:09 HDL Cholesterol 33 mg/dL (40-59) L 01/22/19 01:09 Cholesterol/HDL Ratio 4.45 % 01/22/19 01:09 Lipase 105 units/L (13-60) H 01/21/19 19:14 Urine Color Straw (Yellow) 01/22/19 05:03 Urine Turbidity Clear (Clear) 01/22/19 05:03 Urine pH 6.0 (5.0-7.0) 01/22/19 05:03 Ur Specific [place] 1.008 (1.003-1.030) 01/22/19 05:03 Urine Protein >500 mg/dL (Negative) 01/22/19 05:03 Urine Glucose (UA) 50 mg/dL (Negative) 01/22/19 05:03 Urine Ketones Neg mg/dL (Negative) 01/22/19 05:03 Urine Blood Sm (Negative) 01/22/19 05:03 Urine Nitrite Neg (Negative) 01/22/19 05:03 Urine Bilirubin Neg (Negative) 01/22/19 05:03 Urine Urobilinogen < 2.0 mg/dL (<2.0) 01/22/19 05:03 Ur Leukocyte Esterase Tr (Negative) 01/22/19 05:03 Urine WBC (Auto) 18.0 /HPF (0.0-6.0) H 01/22/19 05:03 Urine RBC (Auto) 3.0 /HPF (0.0-6.0) 01/22/19 05:03 U Epithel Cells (Auto) 1.0 /HPF (0-13.0) 01/22/19 05:03 Urine Mucus Few /HPF 01/22/19 05:03 Hep Bs Antigen Non-reactive (Negative) 01/23/19 04:56 Hepatitis C Antibody Non-reactive (NonReactive) 01/23/19 04:56 Active Medications - Current Medications Current Medications: Generic Name Dose Route Start Last Admin Trade Name Freq PRN Reason Stop Dose Admin Acetaminophen 650 mg 01/22/19 00:09 01/22/19 05:49 Tylenol PO 650 mg Q4H PRN Administration Pain MILD(1-3)/Fever >100.5/SIERRA Aspirin 325 mg 01/23/19 10:00 01/26/19 10:18 Aspirin PO 325 mg QDAY GUNNER Administration Calcium Acetate 667 mg 01/22/19 01:25 01/26/19 08:44 Phoslo PO 667 mg TIDWM GUNNER Administration Carvedilol 25 mg 01/23/19 10:00 01/26/19 10:18 Coreg PO 25 mg BID GUNNER Administration Clonidine HCl 0.2 mg 01/23/19 10:00 01/26/19 10:19 Catapres PO 0.2 mg Q12HR GUNNER Administration Epoetin Kamran 10,000 unit 01/22/19 19:55 01/25/19 14:42 Procrit IV 10,000 unit LUDIVINA PRN Administration hemodialysis Furosemide 40 mg 01/22/19 14:30 01/26/19 10:18 Lasix PO 40 mg QDAY GUNNER Administration Heparin Sodium (Porcine) 5,000 unit 01/23/19 22:00 01/26/19 10:18 Heparin SUB-Q 5,000 unit Q12HR GUNNER Administration Hydralazine HCl 10 mg 01/22/19 14:30 01/23/19 11:33 Apresoline IV 10 mg Q4H PRN Administration Blood Pressure Hydralazine HCl 100 mg 01/23/19 14:00 01/26/19 05:45 Apresoline PO 100 mg Q8HR GUNNER Administration Ceftriaxone Sodium 1 gm in 50 mls @ 100 mls/hr 01/22/19 15:00 01/26/19 10:19 Rocephin/Ns 1 Gm/50 Ml IV 100 mls/hr Q24HR GUNNER Administration Protocol Sodium Chloride 100 mls @ 999 mls/hr 01/23/19 11:07 Nacl 0.9% IV LUDIVINA PRN Hypotension Nifedipine 60 mg 01/22/19 14:30 01/26/19 10:18 Procardia Xl PO 60 mg QDAY GUNNER Administration Ondansetron HCl 4 mg 01/22/19 00:09 Zofran IV Q8H PRN Nausea And Vomiting Polyethylene Glycol 17 gm 01/22/19 14:30 Miralax 3350 PO QDAY PRN Constipation Sodium Chloride 10 ml 01/22/19 10:00 01/26/19 10:20 Sodium Chloride Flush Syringe 10 Ml IV 10 ml BID GUNNER Administration Sodium Chloride 10 ml 01/22/19 00:09 Sodium Chloride Flush Syringe 10 Ml IV PRN PRN LINE FLUSH
--- NOTE | 2019-01-26 17:38 | Progress Note ---
Assessment and Plan - Patient Problems (1) Chronic kidney disease, stage 5 Current Visit: Yes Status: Acute Plan to address problem: Patient has chronic kidney disease which appears to have progressed to stage V chronic kidney disease. Presented with uremic symptoms and metabolic acidosis. Started on hemoialysis. Tolerating treatment so far. Had Vein mapping for AV fistula. Hemodialysis in am. Awaiting completion of arrangements for outpatien t dialysis (2) Hypertensive chronic kidney disease with stage 5 chronic kidney disease or end stage renal disease Current Visit: Yes Status: Acute Plan to address problem: Continue oral antihypertensive medications and follow-up blood pressure (3) Metabolic acidosis Current Visit: Yes Status: Acute Plan to address problem: Bicarbonate improving with dialysis. Follow-up level (4) Hypertensive urgency Current Visit: Yes Status: Acute Plan to address problem: The blood pressure is improving. Follow-up blood pressure on current medications (5) Nausea and vomiting Current Visit: Yes Status: Acute Plan to address problem: Probably secondary to uremia. By mouth antiemetic . 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 He has no new complaints. No chest pain or shortness of breath. No nausea or vomiting Objective - Exam Narrative Exam: Heavily built middle-aged -[place] male lying in bed in no acute di stress HEENT: NCAT, pink oral mucous membrane Neck: Supple, no venous distention CVS: S1S2 RRR with no murmur, rub or gallop Chest: Clear to auscultation Abdomen: Obese,, soft, nontender, no organomegaly, bowel sounds are present Extremities: No edema Skin hyperpigmentation in the legs and feet Genitourinary deferred Neuro: Awake, alert no focal deficits - Vital Signs Vital signs: Vital Signs - 12hr 01/26/19 01/26/19 01/26/19 05:45 08:17 10:00 Temperature 97.7 F Pulse Rate 83 84 94 H Pulse Rate [ 94 H Apical] Respiratory 18 18 Rate Blood Pressure 134/83 128/77 O2 Sat by Pulse 98 95 Oximetry 01/26/19 01/26/19 01/26/19 10:18 10:19 14:51 Temperature Pulse Rate 94 H 94 H 83 Pulse Rate [ Apical] Respiratory Rate Blood Pressure 128/77 128/77 134/89 O2 Sat by Pulse Oximetry - Lab 01/25/19 10:03 01/25/19 10:03 Most recent lab results Calcium 6.0 mg/dL (8.4-10.2) L D 01/25/19 10:03 Phosphorus 11.00 mg/dL (2.5-4.5) H 01/22/19 00:17 Magnesium 1.80 mg/dL (1.7-2.3) 01/23/19 04:56 Medications & Allergies - Medications Allergies/Adverse Reactions: Allergies No Known Allergies Allergy (Unverified 09/30/13 13:19) Home Medications: Home Medications Medication Instructions Recorded Confirmed Last Taken Type Furosemide 01/22/19 Unknown History NIFEdipine 01/22/19 Unknown History carvediloL 01/22/19 Unknown History hydrALAZINE 01/22/19 Unknown History Active Medications: Generic Name Dose Route Start Last Admin Trade Name Freq PRN Reason Stop Dose Admin Acetaminophen 650 mg 01/22/19 00:09 01/22/19 05:49 Tylenol PO 650 mg Q4H PRN Administration Pain MILD(1-3)/Fever >100.5/SIERRA Aspirin 325 mg 01/23/19 10:00 01/26/19 10:18 Aspirin PO 325 mg QDAY GUNNER Administration Calcium Acetate 667 mg 01/22/19 01:25 01/26/19 13:05 Phoslo PO 667 mg TIDWM GUNNER Administration Carvedilol 25 mg 01/23/19 10:00 01/26/19 10:18 Coreg PO 25 mg BID GUNNER Administration Clonidine HCl 0.2 mg 01/23/19 10:00 01/26/19 10:19 Catapres PO 0.2 mg Q12HR GUNNER Administration Epoetin Kamran 10,000 unit 01/22/19 19:55 01/25/19 14:42 Procrit IV 10,000 unit LUDIVINA PRN Administration hemodialysis Furosemide 40 mg 01/22/19 14:30 01/26/19 10:18 Lasix PO 40 mg QDAY GUNNER Administration Heparin Sodium (Porcine) 5,000 unit 01/23/19 22:00 01/26/19 10:18 Heparin SUB-Q 5,000 unit Q12HR GUNNER Administration Hydralazine HCl 10 mg 01/22/19 14:30 01/23/19 11:33 Apresoline IV 10 mg Q4H PRN Administration Blood Pressure Hydralazine HCl 100 mg 01/23/19 14:00 01/26/19 14:51 Apresoline PO 100 mg Q8HR GUNNER Administration Ceftriaxone Sodium 1 gm in 50 mls @ 100 mls/hr 01/22/19 15:00 01/26/19 10:19 Rocephin/Ns 1 Gm/50 Ml IV 100 mls/hr Q24HR GUNNER Administration Protocol Sodium Chloride 100 mls @ 999 mls/hr 01/23/19 11:07 Nacl 0.9% IV LUDIVINA PRN Hypotension Nifedipine 60 mg 01/22/19 14:30 01/26/19 10:18 Procardia Xl PO 60 mg QDAY GUNNER Administration Ondansetron HCl 4 mg 01/22/19 00:09 Zofran IV Q8H PRN Nausea And Vomiting Polyethylene Glycol 17 gm 01/22/19 14:30 Miralax 3350 PO QDAY PRN Constipation Sodium Chloride 10 ml 01/22/19 10:00 01/26/19 10:20 Sodium Chloride Flush Syringe 10 Ml IV 10 ml BID GUNNER Administration Sodium Chloride 10 ml 01/22/19 00:09 Sodium Chloride Flush Syringe 10 Ml IV PRN PRN LINE FLUSH
[2019-01-27] MEDS: hydrALAZINE 25 MG TAB PO SCH ×2 (05:53→14:00)
[2019-01-27] MEDS: CALCIUM ACETATE 667 MG CAP PO SCH ×3 (08:57→16:32)
[2019-01-27] MEDS: carvediloL 12.5 MG TAB PO SCH (09:00)
[2019-01-27] MEDS: ASPIRIN 325 MG TAB PO SCH (09:00)
[2019-01-27] MEDS: FUROSEMIDE 40 MG TAB PO SCH (09:01)
[2019-01-27] MEDS: NIFEdipine XL 60 MG TAB PO SCH (09:02)
[2019-01-27] MEDS: cloNIDine 0.2 MG TAB PO SCH (09:02)
[2019-01-27] MEDS: HEPARIN 5,000 UNIT/1 ML VIAL SUB-Q SCH (09:02)
--- NOTE | 2019-01-27 10:50 | Progress Note ---
Assessment and Plan - Patient Problems (1) Chronic kidney disease, stage 5 Current Visit: Yes Status: Acute Plan to address problem: chronic kidney disease now progressed to stage V chronic kidney disease. Presented with uremic symptoms and metabolic acidosis. Started on hemoialysis. Tolerating treatment so far. Had Vein mapping for AV fistula. Hemodialysis in am. pt stable for discharge once arrangements for outpatient dialysis is complete (2) Hypertensive chronic kidney disease with stage 5 chronic kidney disease or end stage renal disease Current Visit: Yes Status: Acute Plan to address problem: Continue oral antihypertensive medications and follow-up blood pressure (3) Metabolic acidosis Current Visit: Yes Status: Acute Plan to address problem: Bicarbonate improving with dialysis. Follow-up level (4) Hypertensive urgency Current Visit: Yes Status: Acute Plan to address problem: The blood pressure is improving. 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 Improving with dialysis Subjective Date of service: 01/27/19 Principal diagnosis: A/CKD; elevated trop Interval history: Pt awake, alert in no acute distress. Objective - Vital Signs Vital signs: Vital Signs - 12hr 01/27/19 01/27/19 01/27/19 00:42 05:01 05:53 Temperature 97.3 F L 97.3 F L Pulse Rate 82 80 80 Respiratory 18 20 Rate Blood Pressure 115/57 140/81 140/81 O2 Sat by Pulse 93 95 Oximetry 01/27/19 01/27/19 01/27/19 08:22 08:33 09:00 Temperature 97.7 F Pulse Rate 83 83 Respiratory 18 18 Rate Blood Pressure 129/80 129/80 O2 Sat by Pulse 93 Oximetry 01/27/19 09:02 Temperature Pulse Rate 83 Respiratory Rate Blood Pressure 130/80 O2 Sat by Pulse Oximetry - General Appearance General appearance: well-developed, well-nourished, appears stated age, obese EENT: ATNC, PERRL, mucous membranes moist Neck: no JVD Respiratory: Present: Decreased Breath Sounds Cardiology: regular, S1S2 Gastrointestinal: normoactive bowel sounds, obese Integumentary: no rash, other (+ edema ) Neurologic: no focal deficit, alert and oriented x3, strength 5/5, CN 3-12 intact Psychiatric: mood/affect appropriate, cooperative - Lab 01/25/19 10:03 01/25/19 10:03 Most recent lab results Calcium 6.0 mg/dL (8.4-10.2) L D 01/25/19 10:03 Phosphorus 11.00 mg/dL (2.5-4.5) H 01/22/19 00:17 Magnesium 1.80 mg/dL (1.7-2.3) 01/23/19 04:56 Medications & Allergies - Medications Allergies/Adverse Reactions: Allergies No Known Allergies Allergy (Unverified 09/30/13 13:19) Home Medications: Home Medications Medication Instructions Recorded Confirmed Last Taken Type Furosemide 01/22/19 Unknown History NIFEdipine 01/22/19 Unknown History carvediloL 01/22/19 Unknown History hydrALAZINE 01/22/19 Unknown History Active Medications: Generic Name Dose Route Start Last Admin Trade Name Freq PRN Reason Stop Dose Admin Acetaminophen 650 mg 01/22/19 00:09 01/22/19 05:49 Tylenol PO 650 mg Q4H PRN Administration Pain MILD(1-3)/Fever >100.5/SIERRA Aspirin 325 mg 01/23/19 10:00 01/27/19 09:00 Aspirin PO 325 mg QDAY GUNNER Administration Calcium Acetate 667 mg 01/22/19 01:25 01/27/19 08:57 Phoslo PO 667 mg TIDWM GUNNER Administration Carvedilol 25 mg 01/27/19 22:00 Coreg PO BID GUNNER Clonidine HCl 0.2 mg 01/23/19 10:00 01/27/19 09:02 Catapres PO 0.2 mg Q12HR GUNNER Administration Epoetin Kamran 10,000 unit 01/22/19 19:55 01/25/19 14:42 Procrit IV 10,000 unit LUDIVINA PRN Administration hemodialysis Furosemide 40 mg 01/22/19 14:30 01/27/19 09:01 Lasix PO 40 mg QDAY GUNNER Administration Heparin Sodium (Porcine) 5,000 unit 01/23/19 22:00 01/27/19 09:02 Heparin SUB-Q 5,000 unit Q12HR GUNNER Administration Hydralazine HCl 10 mg 01/22/19 14:30 01/23/19 11:33 Apresoline IV 10 mg Q4H PRN Administration Blood Pressure Hydralazine HCl 100 mg 01/23/19 14:00 01/27/19 05:53 Apresoline PO 100 mg Q8HR GUNNER Administration Ceftriaxone Sodium 1 gm in 50 mls @ 100 mls/hr 01/22/19 15:00 01/26/19 10:19 Rocephin/Ns 1 Gm/50 Ml IV 01/27/19 14:59 100 mls/hr Q24HR GUNNER Administration Protocol Sodium Chloride 100 mls @ 999 mls/hr 01/23/19 11:07 Nacl 0.9% IV LUDIVINA PRN Hypotension Nifedipine 60 mg 01/22/19 14:30 01/27/19 09:02 Procardia Xl PO 60 mg QDAY GUNNER Administration Ondansetron HCl 4 mg 01/22/19 00:09 Zofran IV Q8H PRN Nausea And Vomiting Polyethylene Glycol 17 gm 01/22/19 14:30 Miralax 3350 PO QDAY PRN Constipation Sodium Chloride 10 ml 01/22/19 10:00 01/27/19 09:01 Sodium Chloride Flush Syringe 10 Ml IV 10 ml BID GUNNER Administration Sodium Chloride 10 ml 01/22/19 00:09 Sodium Chloride Flush Syringe 10 Ml IV PRN PRN LINE FLUSH
--- NOTE | 2019-01-27 13:17 | Discharge Summary ---
Providers - Providers Date of Admission: 01/21/19 23:29 Date of discharge: 01/27/19 Attending physician: JOB ADAIR 01/21/19 21:00 Consult to Physician [CONS] Routine Comment: Dr. Matson spoke with Dr. Candelario @ 2055 Consulting Provider: RADHA ADAMS Physician Instructions: Reason For Exam: renal failure, hypocalcemia, uremia 01/22/19 17:17 Consult to Physician [CONS] Routine Comment: Consulting Provider: JULISSA CANTU Physician Instructions: Reason For Exam: ESRD needs Permacath 01/22/19 19:55 Consult to Case Management [CONS] Routine Services Needed at Discharge: Other Notified:: CASE MANAGEMENT Comment:: arrange outpatient dialysis at [facility] Primary care physician: ANALYSIS DIRECTOR Hospitalization Condition: Fair Hospital course: Patient 38-year-old with a history of hypertension morbid obesity chronic kidney disease presented with worsening kidney failure. Was symptomatic. Patient had mapping prior to admission. Had Been replaced and was placed on hemodialysis. Patient has been doing well since hemodialysis. Increase strength improved endurance. Patient is stable for discharge has found chair time. Disposition: TO HOME OR SELFCARE - Discharge Diagnoses (1) Abdominal pain Status: Acute Comment: resolved was secondary to renal failuie (2) Acute on chronic renal failure Status: Acute Comment: She currently has chair time stable for discharge. Aggressive control of blood pressure medication. (3) Atypical chest pain Status: Acute (4) Medical non-compliance Status: Chronic Comment: Stress compliance and the importance it provides additional care. (5) Obesity Status: Chronic Comment: Low-calorie diet. Avoid late night snacking low cause. Core Measure Documentation - Palliative Care Palliative Care/ Comfort Measures: Not Applicable - Core Measures Any of the following diagnoses?: none Exam - Constitutional Vitals: Temp Pulse Resp BP Pulse Ox 98.0 F 70 28 H 159/81 93 01/27/19 10:50 01/27/19 12:15 01/27/19 10:50 01/27/19 12:15 01/27/19 08:33 General appearance: Present: no acute distress, well-nourished - EENT Eyes: Present: PERRL ENT: hearing intact, clear oral mucosa - Neck Neck: Present: supple, normal ROM - Respiratory Respiratory effort: normal Respiratory: bilateral: CTA - Cardiovascular Heart Sounds: Present: S1 & S2. Absent: rub, click - Extremities Extremities: pulses symmetrical, No edema Peripheral Pulses: within normal limits - Abdominal General gastrointestinal: Present: soft, non-tender, non-distended, normal bowel sounds Male genitourinary: Present: normal - Integumentary Integumentary: Present: clear, warm, dry - Musculoskeletal Musculoskeletal: gait normal, strength equal bilaterally - Psychiatric Psychiatric: appropriate mood/affect, intact judgment & insight - Neurologic Neurologic: CNII-XII intact, moves all extremities Plan Activity: no restrictions Weight Bearing Status: Full Weight Bearing Diet: renal Special Instructions: restrict fluid intake to (2.5), record daily BP diary Follow up with: PRIMARY CARE, [Primary Care Provider] - 7 Days Forms: Accompanied Note Prescriptions: Aspirin 325 mg PO QDAY #30 tablet cloNIDine [Catapres] 0.2 mg PO Q12HR #60 tablet carvediloL [Coreg] 25 mg PO BID #60 tablet Furosemide [Lasix TAB] 40 mg PO QDAY #30 tablet Calcium Acetate [Phoslo] 667 mg PO TIDWM #60 capsule NIFEdipine XL [Procardia Xl] 60 mg PO QDAY #30 tablet
[2019-01-27] MEDS ORDERED: SODIUM CHLORIDE*PRIMING MACHINE ONLY FOR DIALYSIS MC ONE ×2 (14:15→14:56)
[2019-01-27] MEDS: cefTRIAXone/NS 1 GM/50 ML 1 GM/50 ML BAG IV SCH (14:21)
[2019-01-27] MEDS: EPOETIN ALFA 10,000 UNIT/1 ML INJ IV PRN (14:30)
[2019-01-27 15:14] VITALS: BP 150/89
[2019-01-27] MEDS ORDERED: carvediloL 25 MG TAB PO SCH (22:00)
== END 2019-01-27 18:45 | disposition home or self-care (01) | DRG 674 ==
LOC: ED 18:14 → 4A 23:29 → CC1 01-22 00:22 → 4A 01-22 15:43
PROVIDERS: ADMIT Internal Medicine; ATTEND Internal Medicine
PROC: 0JH63XZ Insertion of Tunneled Vascular Access Device into Chest Subcutaneous Tissue and Fascia, Percutaneous Approach (ICD-10-PCS; principal; 2019-01-23)
PROC: 02HV33Z Insertion of Infusion Device into Superior Vena Cava, Percutaneous Approach (ICD-10-PCS; 2019-01-23)
PROC: B548ZZA Ultrasonography of Superior Vena Cava, Guidance (ICD-10-PCS; 2019-01-23)
PROC: 5A1D70Z Performance of Urinary Filtration, Intermittent, Less than 6 Hours Per Day (ICD-10-PCS; 2019-01-23)
PROC: 5A1D70Z Performance of Urinary Filtration, Intermittent, Less than 6 Hours Per Day (ICD-10-PCS; 2019-01-24)
PROC: 5A1D70Z Performance of Urinary Filtration, Intermittent, Less than 6 Hours Per Day (ICD-10-PCS; 2019-01-25)
PROC: 5A1D70Z Performance of Urinary Filtration, Intermittent, Less than 6 Hours Per Day (ICD-10-PCS; 2019-01-27)
DX: N17.0 Acute kidney failure with tubular necrosis (principal); M62.82 Rhabdomyolysis; E87.1 Hypo-osmolality and hyponatremia; Z68.43 Body mass index [BMI] 50.0-59.9, adult; I13.0 Hypertensive heart and chronic kidney disease with heart failure and stage 1 through stage 4 chronic kidney disease, or unspecified chronic kidney disease; E87.2 Acidosis; N18.6 End stage renal disease; I50.9 Heart failure, unspecified; I16.0 Hypertensive urgency; E66.01 Morbid (severe) obesity due to excess calories; E87.70 Fluid overload, unspecified; E11.22 Type 2 diabetes mellitus with diabetic chronic kidney disease; E83.42 Hypomagnesemia; F17.210 Nicotine dependence, cigarettes, uncomplicated; G47.33 Obstructive sleep apnea (adult) (pediatric); Z60.2 Problems related to living alone; E83.51 Hypocalcemia; Z82.49 Family history of ischemic heart disease and other diseases of the circulatory system; Z83.3 Family history of diabetes mellitus; Z91.19 Patient's noncompliance with other medical treatment and regimen; Z82.3 Family history of stroke; Z71.89 Other specified counseling; Z79.84 Long term (current) use of oral hypoglycemic drugs
CPT/HCPCS: 36415; 36558; 74022; 74176; 76770; 77001; 78582; 80048; 80053; 80061; 81001; 82310; 82550; 82553; 82962; 83036; 83690; 83735; 83880; 84100; 84484; 85025; 85027; 85379; 86706; 86803; 87040; 87086; 93005; 93010; 93306; 93970; G0378; A9540; A9558; C1750; J0360; J0610; J0696; J0885; J1644; J2250; J3010; J3475; J7030; J7050

== ENCOUNTER 2019-02-07 05:51 | Day surgery (SDC) | payer OTHER ==
[~2019-02-07 05:51] MED LIST: SODIUM CHLORIDE 0.9% 1000 ML 1,000 ML IV SCH; ceFAZolin/STERILE WATER 2 GM/20 ML SYRINGE IV NR
[2019-02-07] MEDS ORDERED: BACTERIOSTATIC SODIUM CHLORIDE 0.9% 30 ML VIAL INFILTRATI ONE (06:41)
[2019-02-07 07:20] LABS: Calcium 7.7 mg/dL (8.4-10.2)
[2019-02-07] MEDS ORDERED: fentaNYL 100 MCG/2 ML INJ IV PRN (07:35)
[2019-02-07 07:44] LABS: Basophils # (Auto) 0.1 K/mm3 (0.0-0.1); Basophils % (Auto) 1.1 % (0.0-1.8); Eosinophils # (Auto) 0.2 K/mm3 (0.0-0.4); Hematocrit 26.3 % (35.5-45.6); Hemoglobin 8.5 gm/dl (11.8-15.2); Lymphocytes # (Auto) 1.2 K/mm3 (1.2-5.4); Lymphocytes % (Auto) 15.3 % (13.4-35.0); Mean Corpuscular HGB Conc 33 % (32-34); Mean Corpuscular Volume 89 fl (84-94); Monocytes # (Auto) 0.4 K/mm3 (0.0-0.8); Monocytes % (Auto) 5.4 % (0.0-7.3); Platelet Count 241 K/mm3 (140-440); Red Blood Count 2.95 M/mm3 (3.65-5.03)
[2019-02-07] MEDS ORDERED: LIDOCAINE MPF (2%) 20 MG/1 ML VIAL 5 ML ONE (07:44)
[2019-02-07] MEDS ORDERED: NEOSTIGMINE 10MG/10 ML INJ MDV ONE (07:44)
[2019-02-07] MEDS ORDERED: dexAMETHasone 20 MG/5 ML VIAL ONE (07:44)
[2019-02-07] MEDS ORDERED: ONDANSETRON 4 MG/2 ML INJ ONE (07:44)
[2019-02-07] MEDS ORDERED: GLYCOPYRROLATE 0.4 MG/2 ML INJ ONE (07:44)
[2019-02-07] MEDS ORDERED: PHENYLEPHRINE/NS 1,000 MCG/10 ML SYRINGE (OR USE) IV ONE (07:44)
[2019-02-07] MEDS ORDERED: SUCCINYLCHOLINE CHLORIDE 200 MG/10 ML INJ MDV ONE (07:44)
[2019-02-07] MEDS ORDERED: PROPOFOL 200 MG/20 ML VIAL IV ONE (07:44)
[2019-02-07] MEDS ORDERED: fentaNYL 100 MCG/2 ML INJ ONE (07:44)
[2019-02-07] MEDS ORDERED: HEPARIN 10,000 UNITS/10 ML VIAL ONE (07:45)
[2019-02-07] MEDS ORDERED: SODIUM CHLORIDE 0.9% 500 ML 500 ML ONE (07:45)
[2019-02-07] MEDS ORDERED: PROTAMINE SULFATE 50 MG/5 ML INJ ONE (07:45)
--- NOTE | 2019-02-07 07:45 | Anesthesia Day of Surgery ---
Anesthesia Day of Surgery - Day of Surgery Patient Examined: Yes Patient H&P Reviewed: Yes Patient is NPO: Yes Beta Blockers: Yes
--- NOTE | 2019-02-07 07:45 | Anesthesia Consultation ---
Anesthesia Consult and Med Hx Date of service: 02/07/19 - Airway Anesthetic Teeth Evaluation: Poor (broken molars and premolars upper and lower. Denies loose teeth.) ROM Head & Neck: Adequate Mental/Hyoid Distance: Adequate Mallampati Class: Class III Intubation Access Assessment: Possibly Difficult - Pulmonary Exam CTA: Yes - Cardiac Exam Cardiac Exam: RRR - Pre-Operative Health Status ASA Pre-Surgery Classification: ASA4 Proposed Anesthetic Plan: General - Pulmonary Hx Smoking: Yes (quit 3 wks ago; 1 PPD X 10 YRS) Hx Respiratory Symptoms: No SOB: No Hx Sleep Apnea: Yes (noncompliant with CPAP) - Cardiovascular System Hx Hypertension: Yes (prev noncompliant. Recently restarted on meds; currently poorly controlled.) Hx Heart Attack/AMI: No Hx Percutaneous Transluminal Coronary Angioplasty (PTCA): No Hx Cardia Arrhythmia: No - Central Nervous System CVA: No - Gastrointestinal Hx Gastroesophageal Reflux Disease: No - Endocrine Hx End Stage Renal Disease: Yes (last HD 02/06) Hx Liver Disease: No Hx Insulin Dependent Diabetes: No Hx Non-Insulin Dependent Diabetes: No Hx Thyroid Disease: No - Other Systems Hx Obesity: Yes (BMI 51) - Additional Comments Anesthesia Medical History Comments: No hx anesthetic complications. Took all prescribed antihypertensives this morning. TTE 01/2019 showered EF 45-50%. No signs/symptoms of decompensated HF today.
[2019-02-07] MEDS ORDERED: CISATRACURIUM 10 MG/5 ML INJ IV ONE (08:00)
[2019-02-07] MEDS ORDERED: GELATIN SPONGE SIZE 100 TP ONE (09:35)
[2019-02-07] MEDS ORDERED: fentaNYL 250 MCG/5 ML INJ ONE (10:28)
[2019-02-07] MEDS ORDERED: HEPARIN 10,000 UNITS/10 ML VIAL IV ONE (10:44)
[2019-02-07] MEDS ORDERED: SODIUM CHLORIDE 0.9% 500 ML IVPB IRRIGATION ONE (10:45)
[2019-02-07] MEDS ORDERED: THROMBIN (RECOMBINANT) 5,000 UNIT VIAL TP ONE (10:46)
[2019-02-07] MEDS ORDERED: oxyCODONE 5 MG TAB PO PRN (12:05)
--- NOTE | 2019-02-07 12:05 | Post Operative Note ---
Pre-op diagnosis: ESRD Post-op diagnosis: same Procedure: Left Forearm Radiocephalic AV Fistula Creation Anesthesia: GETA Surgeon: JESE WALLACE Estimated blood loss: other (10ml) Pathology: none Condition: stable Disposition: PACU
--- NOTE | 2019-02-07 12:10 | Short Stay Summary ---
Short Stay Documentation Date of service: 02/07/19 - History Principal diagnosis: ESRD H&P: obtained from office Past Medical History: ESRD - Allergies and Medications Current Medications: Allergies No Known Allergies Allergy (Verified 02/03/19 10:06) Home Medications Medication Instructions Recorded Confirmed Last Taken Type Aspirin 325 mg PO QDAY #30 tablet 01/27/19 02/03/19 02/07/19 06:00 Rx Calcium Acetate [Phoslo] 667 mg PO TIDWM #60 capsule 01/27/19 02/03/19 02/07/19 06:00 Rx Furosemide [Lasix TAB] 40 mg PO QDAY #30 tablet 01/27/19 02/03/19 02/07/19 06:00 Rx NIFEdipine XL [Procardia Xl] 60 mg PO QDAY #30 tablet 01/27/19 02/03/19 02/07/19 06:00 Rx carvediloL [Coreg] 25 mg PO BID #60 tablet 01/27/19 02/03/19 02/07/19 06:00 Rx cloNIDine [Catapres] 0.2 mg PO Q12HR #60 tablet 01/27/19 02/03/19 02/07/19 06:00 Rx Active Medications Cefazolin Sodium (Ancef/Sterile Water 2 Gm/20 Ml) 2 gm IV PREOP NR Stop: 02/07/19 23:59 Fentanyl (Sublimaze) 50 mcg IV Q5MIN PRN PRN Reason: Pain , Severe (7-10) Stop: 02/07/19 22:00 Sodium Chloride (Nacl 0.9% 1000 Ml) 1,000 mls @ 42 mls/hr IV DIRECT GUNNER Last Admin: 02/07/19 06:55 Dose: 42 mls/hr Documented by: Labetalol HCl (Labetalol) 10 mg IV Q10MIN PRN PRN Reason: Hypertension Last Admin: 02/07/19 07:45 Dose: 10 mg Documented by: Oxycodone HCl (Roxicodone) 5 mg PO Q4H PRN PRN Reason: Pain, Moderate (4-6) - Physical exam General appearance: no acute distress Extremities: no ischemia - Hospital course Hospital course: The patient was taken to the operating room and had a left arm av fistula creation performed. please refer to the operative note concerning details of the procedure. the patient tolerated the procedure well and was discharged home in stable condition. - Disposition Condition at discharge: Stable Disposition: DC-01 TO HOME OR SELFCARE - Discharge Diagnoses (1) ESRD (end stage renal disease) on dialysis Status: Acute Short Stay Discharge Plan Follow up with: PRIMARY CAREMD [Primary Care Provider] - 7 Days
--- NOTE | 2019-02-07 13:58 | Operative Report ---
STAFF SURGEON: Dr. Isaias Estrella. PREOPERATIVE DIAGNOSIS: End-stage renal disease. POSTOPERATIVE DIAGNOSIS: End-stage renal disease. PROCEDURE PERFORMED: Left forearm radiocephalic AV fistula creation. COMPLICATIONS: None. ESTIMATED BLOOD LOSS: 10 mL. ANESTHESIA: General. INDICATIONS FOR PROCEDURE: This is a 38-year-old gentleman with end-stage renal disease, on hemodialysis via right IJ PermCath in need of a dialysis access in the extremity. The patient had a preoperative vein mapping which demonstrated a suitable cephalic vein throughout and therefore was scheduled to undergo a left arm fistula creation. The patient was explained the risks, benefits and alternatives to the procedure, expressed understanding and wished to proceed. DESCRIPTION OF PROCEDURE: After appropriate consent was obtained, the patient was brought back to the operating room and placed on the operating table in supine position with the left arm extended. The patient was given appropriate medication for general anesthesia, the LMA placed without difficulty. The left arm was prepped and draped in the usual sterile fashion with ChloraPrep. Appropriate preoperative antibiotics were administered and appropriate timeout was performed indicating correct patient, procedure and site of procedure. I then began the operation by making a longitudinal incision in the distal forearm. This was carried through subcutaneous tissue with a combination of blunt dissection and electrocautery and the site of the cephalic vein was identified and found to be suitable for venous outflow and this was mobilized for an appropriate distance both proximally and distally. Branches were ligated with 3-0 silk suture. Once the vein was mobilized, we then proceeded to continue our dissection medially further through the subcutaneous tissue and overlying aponeurosis of the radial artery. The radial artery was identified and found to be suitable for arterial inflow and this was mobilized for appropriate distance both proximally and distally. The patient was given 3000 units of unfractionated heparin. Appropriate timeout elapsed, we placed vascular clamps on the radial artery, both proximally and distally. The distal aspect of the cephalic vein was ligated with silk suture and transected. The anterior surface was marked. The vein was appropriately spatulated and cut to an appropriate length. A [place] blade was taken to make a longitudinal arteriotomy in the radial artery, extended with Tran scissors. We then proceeded to perform the end-to-side anastomosis with a running 6-0 Prolene suture. Once complete flow was reestablished through the vein for several beats and then the distal clamp was removed, there was a nice palpable thrill. We then looked to obtain hemostasis along the suture line, which was obtained with hemostatic agents. Once we were satisfied with hemostasis, we then proceeded to close the wound with a deep subcutaneous layer with interrupted 3-0 PDS and then, skin was approximated with 4-0 Monocryl and Dermabond dressing. The patient tolerated the procedure well, emerged from the general anesthesia, had the LMA removed and was sent to recovery in stable condition. JOB# [id number] PRAVEENA/ZENIA
[2019-02-07 14:16] VITALS: BP 154/96
--- NOTE | 2019-02-07 21:10 | Post Anesthesia Evaluation ---
- Post Anesthesia Evaluation Patient Participated: Yes Airway Patent: Yes Stable Respiratory Function: Yes Nausea/Vomiting: No Temp > 96.8F: Yes Pain Manageable: Yes Adequeate Hydration: Yes Anesthesia Complications: No Block Receding Appropriately: Not Applicable Patient on Ventilator: No
== END 2019-02-07 14:00 | disposition home or self-care (01) ==
LOC: OR 05:51
PROVIDERS: ATTEND Surgery Vascular Surgery
DX: I13.2 Hypertensive heart and chronic kidney disease with heart failure and with stage 5 chronic kidney disease, or end stage renal disease (principal); N18.6 End stage renal disease; I50.9 Heart failure, unspecified; G47.30 Sleep apnea, unspecified; E66.9 Obesity, unspecified; K21.9 Gastro-esophageal reflux disease without esophagitis; Z99.2 Dependence on renal dialysis; Z68.43 Body mass index [BMI] 50.0-59.9, adult; Z79.899 Other long term (current) drug therapy; Z79.82 Long term (current) use of aspirin; Z87.891 Personal history of nicotine dependence; Z91.19 Patient's noncompliance with other medical treatment and regimen; Z82.49 Family history of ischemic heart disease and other diseases of the circulatory system; Z86.2 Personal history of diseases of the blood and blood-forming organs and certain disorders involving the immune mechanism
CPT/HCPCS: 36415; 36821; 80048; 85025; A4649; J0330; J0690; J1100; J1644; J2370; J2405; J2704; J2710; J3010; J7030; J7040; J2720

== ENCOUNTER 2019-03-28 05:54 | Day surgery (SDC) | payer OTHER ==
[~2019-03-28 05:54] MED LIST changes: -ceFAZolin/STERILE WATER 2 GM/20 ML SYRINGE IV NR
[2019-03-28] MEDS ORDERED: ceFAZolin/Water 2 GM/20 ML 2 GM/20 ML SYRINGE IV NR (06:00)
[2019-03-28 06:46] LABS: Basophils # (Auto) 0.1 K/mm3 (0.0-0.1); Basophils % (Auto) 1.1 % (0.0-1.8); Eosinophils # (Auto) 0.2 K/mm3 (0.0-0.4); Eosinophils % (Auto) 2.3 % (0.0-4.3); Hematocrit 30.9 % (35.5-45.6); Hemoglobin 10.5 gm/dl (11.8-15.2); Lymphocytes # (Auto) 1.5 K/mm3 (1.2-5.4); Lymphocytes % (Auto) 16.8 % (13.4-35.0); Mean Corpuscular HGB Conc 34 % (32-34); Mean Corpuscular Volume 89 fl (84-94); Monocytes # (Auto) 0.5 K/mm3 (0.0-0.8); Monocytes % (Auto) 5.9 % (0.0-7.3); Platelet Count 228 K/mm3 (140-440); Red Blood Count 3.47 M/mm3 (3.65-5.03)
[2019-03-28 07:11] LABS: Calcium 9.2 mg/dL (8.4-10.2)
[2019-03-28] MEDS ORDERED: HEPARIN 10,000 UNITS/10 ML VIAL ONE (07:19)
[2019-03-28] MEDS ORDERED: PROTAMINE SULFATE 50 MG/5 ML INJ ONE (07:19)
[2019-03-28] MEDS ORDERED: SODIUM CHLORIDE 0.9% 250ML 250 ML ONE (07:19)
[2019-03-28] MEDS ORDERED: THROMBIN (RECOMBINANT) 5,000 UNIT VIAL TP ONE ×2 (07:20→08:31)
[2019-03-28] MEDS ORDERED: GELATIN SPONGE SIZE 100 TP ONE ×2 (07:20→08:31)
[2019-03-28] MEDS ORDERED: fentaNYL 100 MCG/2 ML INJ IV PRN (07:24)
--- NOTE | 2019-03-28 07:24 | Anesthesia Consultation ---
Anesthesia Consult and Med Hx Date of service: 03/28/19 - Airway Anesthetic Teeth Evaluation: Poor (multiple broken and missing teeth) ROM Head & Neck: Adequate Mental/Hyoid Distance: Adequate Mallampati Class: Class III Intubation Access Assessment: Possibly Difficult (previous easy glidescope 4) - Pulmonary Exam CTA: Yes - Cardiac Exam Cardiac Exam: RRR - Pre-Operative Health Status ASA Pre-Surgery Classification: ASA4 Proposed Anesthetic Plan: General - Pulmonary Hx Smoking: Yes (quit 01/2019) Hx Respiratory Symptoms: No Hx Sleep Apnea: Yes (noncompliant with CPAP) - Cardiovascular System Hx Hypertension: Yes (took all antihypertensives this morning) Hx Heart Attack/AMI: No Hx Percutaneous Transluminal Coronary Angioplasty (PTCA): No Hx Cardia Arrhythmia: No - Central Nervous System CVA: No - Gastrointestinal Hx Gastroesophageal Reflux Disease: No - Endocrine Hx End Stage Renal Disease: Yes (last HD 03/27/2019) Hx Liver Disease: No Hx Insulin Dependent Diabetes: No Hx Non-Insulin Dependent Diabetes: No Hx Thyroid Disease: No - Hematic Hx Anemia: Yes - Other Systems Hx Obesity: Yes (BMI 51) - Additional Comments Anesthesia Medical History Comments: EF 45-50%
--- NOTE | 2019-03-28 07:24 | Anesthesia Day of Surgery ---
Anesthesia Day of Surgery - Day of Surgery Patient Examined: Yes Patient H&P Reviewed: Yes Patient is NPO: Yes
[2019-03-28] MEDS ORDERED: LIDOCAINE MPF (2%) 20 MG/1 ML VIAL 5 ML ONE (07:27)
[2019-03-28] MEDS ORDERED: PROPOFOL 200 MG/20 ML VIAL IV ONE (07:28)
[2019-03-28] MEDS ORDERED: fentaNYL 100 MCG/2 ML INJ ONE (08:25)
[2019-03-28] MEDS ORDERED: HEPARIN 10,000 UNITS/10 ML VIAL IV ONE (08:31)
[2019-03-28] MEDS ORDERED: SODIUM CHLORIDE 0.9% 250 ML IVPB IV ONE (08:33)
[2019-03-28] MEDS ORDERED: ePHEDrine SULFATE 50 MG/1 ML INJ ONE (09:16)
[2019-03-28] MEDS ORDERED: PHENYLEPHRINE 10 MG/1 ML INJ SDV ONE (09:20)
[2019-03-28] MEDS ORDERED: ONDANSETRON 4 MG/2 ML INJ ONE (09:26)
--- NOTE | 2019-03-28 10:04 | Post Operative Note ---
Pre-op diagnosis: ESRD Post-op diagnosis: same Procedure: Left Forearm Cephalic Vein Transposition Anesthesia: GETA Surgeon: JESE WALLACE Estimated blood loss: minimal Pathology: none Condition: stable Disposition: PACU
--- NOTE | 2019-03-28 10:09 | Short Stay Summary ---
Short Stay Documentation Date of service: 03/28/19 - History H&P: obtained from office Past Medical History: ESRD - Allergies and Medications Current Medications: Allergies No Known Allergies Allergy (Verified 03/26/19 10:52) Home Medications Medication Instructions Recorded Confirmed Last Taken Type Aspirin 325 mg PO QDAY #30 tablet 01/27/19 03/26/19 02/07/19 06:00 Rx Calcium Acetate [Phoslo] 667 mg PO TIDWM #60 capsule 01/27/19 03/26/19 02/07/19 06:00 Rx Furosemide [Lasix TAB] 40 mg PO QDAY #30 tablet 01/27/19 03/26/19 02/07/19 06:00 Rx NIFEdipine XL [Procardia Xl] 60 mg PO QDAY #30 tablet 01/27/19 03/26/19 02/07/19 06:00 Rx carvediloL [Coreg] 25 mg PO BID #60 tablet 01/27/19 03/26/19 02/07/19 06:00 Rx cloNIDine [Catapres] 0.2 mg PO Q12HR #60 tablet 01/27/19 03/26/19 02/07/19 06:00 Rx oxyCODONE /ACETAMINOPHEN [Percocet 1 tab PO Q4HR 7 Days #20 tab 02/07/19 03/26/19 Unknown Rx 5/325] Active Medications Fentanyl (Sublimaze) 50 mcg IV Q5MIN PRN PRN Reason: Pain , Severe (7-10) Stop: 03/28/19 23:00 Sodium Chloride (Nacl 0.9% 1000 Ml) 1,000 mls @ 42 mls/hr IV DIRECT GUNNER Last Admin: 03/28/19 06:35 Dose: 42 mls/hr Documented by: Cefazolin Sodium (Ancef/Sterile Water 2 Gm/20 Ml) 2 gm in 20 mls @ 80 mls/hr IV PREOP NR; Protocol Stop: 03/28/19 23:59 - Physical exam General appearance: no acute distress Lungs: Normal air movement Heart: Regular rate Extremities: no ischemia - Hospital course Hospital course: the patient was taken to the operating room and had a left arm av fistula revision performed. please refer to the operative not concerning details of the procedure. the patient tolerated the procedure well and was discharged home in stable condition. - Disposition Condition at discharge: Stable Disposition: DC- TO HOME OR SELFCARE Short Stay Discharge Plan Follow up with: PRIMARY CARE, [Primary Care Provider] - 7 Days
[2019-03-28] MEDS ORDERED: NEOSTIGMINE 10MG/10 ML INJ MDV ONE (10:11)
[2019-03-28] MEDS ORDERED: GLYCOPYRROLATE 0.4 MG/2 ML INJ ONE (10:11)
[2019-03-28] MEDS ORDERED: oxyCODONE /ACETAMINOPHEN 5-325MG TAB PO PRN (10:30)
[2019-03-28] MEDS ORDERED: ROCURONIUM 50 MG/5 ML INJ IV ONE (10:41)
[2019-03-28] MEDS ORDERED: SUCCINYLCHOLINE CHLORIDE 200 MG/10 ML INJ MDV ONE (10:41)
--- NOTE | 2019-03-28 12:04 | Operative Report ---
STAFF SURGEON: Dr. Isaias Estrella. PREOPERATIVE DIAGNOSIS: End-stage renal disease. POSTOPERATIVE DIAGNOSIS: End-stage renal disease. PROCEDURE PERFORMED: Left forearm cephalic vein transposition. COMPLICATIONS: None. ESTIMATED BLOOD LOSS: Less than 10 mL. ANESTHESIA: General. INDICATIONS FOR PROCEDURE: This is a 38-year-old gentleman with end-stage renal disease, on hemodialysis, who recently had a radiocephalic AV fistula created that has matured nicely; however, I attempted cannulation and there was some difficulty due to the deepness of the fistula. Therefore, it is felt that the patient would benefit from elevating the vein and performing a transposition on the patient to assist with cannulation. The patient was explained the risks, benefits and alternatives of procedure and he expressed understanding and wished to proceed. DESCRIPTION OF PROCEDURE: After appropriate consent was obtained, the patient was brought back to the operating room and placed on the operating table in supine position with the left arm extended. The patient was given appropriate medication for general anesthesia, was intubated without difficulty. The left arm was prepped and draped in the usual sterile fashion with ChloraPrep. Appropriate preoperative antibiotics were administered and appropriate timeout was performed indicating correct patient, procedure, and site of procedure. I then began the operation by making a longitudinal incision over the AV fistula near the arterial anastomosis. This was continued approximately up the forearm and in the antecubital fossa. The dissection was continued through the subcutaneous tissue with a combination of blunt dissection and electrocautery. The fistula was identified and exposed in its entirety and was found to be of suitable size for cannulation. Once the vein was completely mobilized, we then proceeded to hallie the anterior surface and then placed vascular clamps both proximally and distally. The vein was transected near the distal aspect of the incision. We then proceeded to create a subcutaneous tunnel lateral to the incision and brought through the fistula through the new tunnel. The patient was given 5000 units of unfractionated heparin. We then proceeded to perform an end-to-end anastomosis with a running 6-0 Prolene suture. Once complete, flow was reestablished through the fistula, which had a nice palpable thrill. We then looked to obtain hemostasis along the suture line, which was obtained with hemostatic agents. Once satisfied with hemostasis, we then proceeded to close the wound with deep subcutaneous layer with interrupted 3-0 PDS and skin was approximated with jaun. The patient tolerated the procedure well. Appropriate dressing was placed, emerged from general anesthesia, was extubated in the operating room and sent to recovery in stable condition. All sponge, instrument and needle counts were correct at completion of the operation. JOB# [id number] N/NTS
[2019-03-28 12:08] VITALS: BP 128/62
[2019-03-28] MEDS ORDERED: PHENYLEPHRINE/NS 1,000 MCG/10 ML SYRINGE (OR USE) IV ONE (14:15)
== END 2019-03-28 11:40 | disposition home or self-care (01) ==
LOC: OR 05:54
PROVIDERS: ATTEND Surgery Vascular Surgery
DX: I13.2 Hypertensive heart and chronic kidney disease with heart failure and with stage 5 chronic kidney disease, or end stage renal disease (principal); I50.9 Heart failure, unspecified; N18.6 End stage renal disease; G47.30 Sleep apnea, unspecified; E66.9 Obesity, unspecified; K21.9 Gastro-esophageal reflux disease without esophagitis; T82.41XA Breakdown (mechanical) of vascular dialysis catheter, initial encounter; Z87.891 Personal history of nicotine dependence; Z79.899 Other long term (current) drug therapy; Z79.82 Long term (current) use of aspirin; Z91.19 Patient's noncompliance with other medical treatment and regimen; Z68.43 Body mass index [BMI] 50.0-59.9, adult; Z99.2 Dependence on renal dialysis; Z86.2 Personal history of diseases of the blood and blood-forming organs and certain disorders involving the immune mechanism; Z82.49 Family history of ischemic heart disease and other diseases of the circulatory system; Y83.8 Other surgical procedures as the cause of abnormal reaction of the patient, or of later complication, without mention of misadventure at the time of the procedure; Y92.89 Other specified places as the place of occurrence of the external cause
CPT/HCPCS: 36415; 36818; 80048; 85025; A4649; J0330; J0690; J1644; J2370; J2405; J2704; J2710; J2720; J3010; J7030; J7050